=== PATIENT | male | born 1935 | race Hispanic/Latino ===

== ENCOUNTER 2020-08-04 09:58 | Emergency (ER) | payer OTHER ==
--- NOTE | 2020-08-04 10:56 | RAD REPORT ---
EXAM DESCRIPTION: CT - Head Brain Wo Cont - 08/04/2020 10:41 am CLINICAL HISTORY: Dizziness COMPARISON: 2014 TECHNIQUE: Computed axial tomography of the head was obtained. IV contrast was not requested. All CT scans are performed using dose optimization technique as appropriate and may include automated exposure control or mA/KV adjustment according to patient size. FINDINGS: An intracranial bleed is not seen . The ventricles are normal in caliber. Right frontal cerebral atrophy results in prominent CSF along the cerebral convexity. Fluid within the sinuses/ mastoids is not seen. IMPRESSION: No acute intracranial abnormality is seen. If patient's symptoms persist MRI of the bra in would be recommended.
[2020-08-04] MEDS ORDERED: ONDANSETRON 4 MG/2 ML VIAL ONE (11:07)
[2020-08-04] MEDS ORDERED: MECLIZINE HCL 12.5 MG TAB ONE (11:07)
[2020-08-04] MEDS ORDERED: NA CHLORIDE 0.9% 250 ML ONE (11:07)
[2020-08-04 11:13] LABS: Absolute Lymphocytes (CBC) 0.5 K/uL (0.7-4.9); Basophils % 0.1 % (0-1.3); Hematocrit 35.7 % (39.6-49.0); Lymphocytes % 8.5 % (15.3-44.8); MPV 9.7 fL (7.6-11.3); RBC Red Blood Cell Count 3.62 M/uL (4.33-5.43)
[2020-08-04 11:15] LABS: Protime INR 1.06
[2020-08-04 11:33] LABS: ALT/SGPT 48 U/L (12-78); AST/SGOT 27 U/L (15-37); Albumin 3.7 g/dL (3.4-5.0); Alkaline Phosphatase 85 U/L (45-117); BUN Blood Urea Nitrogen 13 mg/dL (7-18); Bicarbonate 28 mmol/L (21-32); Bilirubin Direct 0.3 mg/dL (0-0.2); Bilirubin Total 1.7 mg/dL (0.2-1.0); Glucose Level 118 mg/dL (74-106); NT PRO-BNP 418 pg/mL (<450); Protein, Total 7.5 g/dL (6.4-8.2); Sodium Level 138 mmol/L (136-145); Troponin (Emerg Dept Use Only) < 0.02 ng/mL (0.0-0.045)
--- NOTE | 2020-08-04 12:06 | RAD REPORT ---
[facility] 11[facility]32 am CLINICAL HISTORY: Cough and dizziness COMPARISON: 2014 FINDINGS: Left apical thickening without significant change and likely benign Mild right apical pleural thickening. The lungs appear clear of acute infiltrate. The heart is mildly enlarged IMPRESSION: No acute abnormalities displayed
[2020-08-04 12:44] LABS: Urine Blood TRACE (NEG); Urine Glucose NEGATIVE (NEG); Urine Protein NEGATIVE (NEG)
[2020-08-04 12:48] LABS: Urine Bacteria <20 /HPF (NONE SEEN); Urine RBC <5 /HPF (NONE SEEN)
--- NOTE | 2020-08-04 15:27 | RAD REPORT ---
EXAM DESCRIPTION: MRI - Brain Wo Cont - 08/04/2020 2:50 pm CLINICAL HISTORY: DIZZINESS COMPARISON: Iac W/Wo Cont dated 06/06/2019; Head Brain Wo Cont dated 08/04/2020 TECHNIQUE: Sagittal T1-weighted images were obtained along with axial PD, heavily T2-weighted and T2 -FLAIR images. Axial DWI and ADC mapping sequences were also obtained along with coronal heavily T2-w eighted images. FINDINGS: No intracranial hemorrhage, mass or acute infarction. There is no edema or new shift of mi dline structures. Patient has prominent CSF signal intensity collection up to 11 mm in thickness johnson g the right frontal and parietal lobes. No underlying sulcal effacement. 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 Mo derate generalized cerebral atrophy present with mild to moderate chronic ischemic change scattered t hroughout the cerebral white matter. Brainstem, thalamus and basal ganglia tissues are generally spar ed any measurable chronic ischemic change. Benedict-matter/white matter junction is preserved. Signal voi ds are seen as a normal finding in the major intracranial vessels. No globe or orbital content abnormality. No sella or supra sella abnormality. Mastoid air cells and paranasal sinuses are clear. IMPRESSION: Negative non-contrast MRI of the Brain for acute finding. 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
--- NOTE | 2020-08-04 16:04 | EDPHYS ---
Physician Documentation [facility] Name: Murray Grace Age: 85 yrs Sex: Male : 1935 Arrival Date: 08/04/2020 Time: 10:00 Bed 8 Private MD: Chio De Guzman ED Physician Tavo Arshad HPI: 08/04 10:35 This 85 yrs old Male presents to ER via Wheelchair with complaints of cp Dizziness, Vomiting, Runny Nose. 10:35 The patient presents with dizziness, generalized weakness. Onset: The symptoms/episode cp began/occurred yesterday. 10:35 Context: just prior to the episode the patient experienced no apparent symptoms. cp 10:35 Associated signs and symptoms: Pertinent positives: nausea, vomiting, Pertinent cp negatives: abdominal pain, chest pain, focal weakness, altered mental status. Patient's baseline: Neuro: alert and fully oriented, Motor: no deficits, Ambulation: walks without assistance, Speech: normal. Historical: - Allergies: 10:07 No Known Allergies; iw - Home Meds: 10:07 calcium daily [Active]; iw - PSHx: 10:07 Prostate surgery 01/29/2015; Cholecystectomy; iw - Immunization history:: Adult Immunizations up to date. - Social history:: Smoking status: Patient denies any tobacco usage or history of. ROS: 10:40 Constitutional: Negative for body aches, chills, fever, poor PO intake. cp 10:40 Eyes: Negative for injury, pain, redness, and discharge. cp 10:40 Cardiovascular: Negative for chest pain, edema, palpitations. cp 10:40 ENT: Negative for drainage from ear(s), ear pain, sore throat, difficulty swallowing, cp difficulty handling secretions. 10:40 Respiratory: Positive for cough, Negative for shortness of breath, wheezing. 10:40 Abdomen/GI: Positive for nausea and vomiting, Negative for abdominal pain, diarrhea, constipation, anorexia, black/tarry stool, rectal bleeding. 10:40 Back: Negative for pain at rest, pain with movement. 10:40 : Negative for urinary symptoms. 10:40 Neuro: Positive for dizziness, weakness, Negative for altered mental status, headache, loss of consciousness, syncope. 10:40 All other systems are negative. Exam: 10:45 Constitutional: The patient appears in no acute distress, alert, awake, cp non-diaphoretic, non-toxic, well developed, well nourished. 10:45 Head/Face: Normocephalic, atraumatic. cp 10:45 Eyes: Periorbital structures: appear normal, Pupils: equal, round, and reactive to light and accomodation, Extraocular movements: intact throughout, Conjunctiva: normal, no exudate, no injection, Sclera: no appreciated abnormality, Lids and lashes: appear normal, bilaterally. 10:45 ENT: External ear(s): are unremarkable, Ear canal(s): are normal, clear, TM's: dullness, bilaterally, Nose: is normal, Mouth: Lips: moist, Oral mucosa: moist, Posterior pharynx: Airway: no evidence of obstruction, patent. 10:45 Neck: ROM/movement: is normal, is supple, without pain, no range of motions limitations, no nuchal rigidity. 10:45 Chest/axilla: Inspection: normal, Palpation: is normal, no crepitus, no tenderness. 10:45 Cardiovascular: Rate: normal, Rhythm: regular, Edema: is not appreciated, JVD: is not appreciated. 10:45 Respiratory: the patient does not display signs of respiratory distress, Respirations: normal, no use of accessory muscles, no retractions, labored breathing, is not present, Breath sounds: are clear throughout, no decreased breath sounds, no stridor, no wheezing. 10:45 Abdomen/GI: Inspection: abdomen appears normal, Bowel sounds: active, all quadrants, Palpation: abdomen is soft and non-tender, in all quadrants, rebound tenderness, is not appreciated. 10:45 Back: pain, is absent, ROM is normal. 10:45 Skin: no rash present. 10:45 Neuro: Orientation: to person, place \T\ time. Mentation: is normal, Cerebellar function: Romberg testing is negative, normal finger to nose testing, Motor: moves all fours, strength is normal, Sensation: is normal. 11:00 ECG was reviewed by the Attending Physician. cp Vital Signs: 10:04 BP 149 / 74; Pulse 62; Resp 16; Temp 98.6; Pulse Ox 100% on R/A; Weight 65.77 kg; iw 11:30 BP 163 / 78; Pulse 72; Resp 21; Pulse Ox 99% ; bp 12:30 BP 165 / 73; Pulse 69; Resp 13; Pulse Ox 99% ; bp 13:00 BP 159 / 70; Pulse 64; Resp 12; Pulse Ox 100% ; bp 14:00 BP 163 / 76; Pulse 68; Resp 11; Pulse Ox 99% ; bp 15:00 BP 161 / 85; Pulse 59; Resp 15; Pulse Ox 99% ; bp 16:00 BP 167 / 60; Pulse 60; Resp 16; Temp 98.5; Pulse Ox 99% ; bp MDM: 10:28 Patient medically screened. cp 11:00 Differential diagnosis: cardiac arrhythmia, CVA, generalized weakness, GI bleed, cp hypovolemia, idiopathic dizziness, TIA, vertigo. 16:02 Data reviewed: vital signs, nurses notes, lab test result(s), EKG, radiologic studies, cp CT scan, MRI, and as a result, I will discharge patient. 16:02 Test interpretation: by ED physician or midlevel provider: ECG. Counseling: I had a cp detailed discussion with the patient and/or guardian regarding: the historical points, exam findings, and any diagnostic results supporting the discharge/admit diagnosis, lab results, radiology results, the need for outpatient follow up, a neurologist, to return to the emergency department if symptoms worsen or persist or if there are any questions or concerns that arise at home. Response to treatment: the patient's symptoms have markedly improved after treatment, and as a result, I will discharge patient. ED course: VSS. Dizziness and nausea improved. No vomiting observed. Will discharge to home for continued monitoring. Patient observed ambulating in ED w/o assistance. 08/04 10:31 Order name: COVID-19 cp 08/04 10:31 Order name: Urine Microscopic Only cp 08/04 10:31 Order name: Basic Metabolic Panel; Complete Time: 11:45 cp 08/04 11:45 Interpretation: Normal except: GLUC 118. cp 08/04 10:31 Order name: CBC with Diff; Complete Time: 11:45 cp 08/04 11:46 Interpretation: Normal except: RBC 3.62; HGB 12.1; HCT 35.7; TG% 87.5; LYM% 8.5; LYMA cp 0.5. 08/04 10:31 Order name: LFT's; Complete Time: 11:45 cp 08/04 11:46 Interpretation: Normal except: BILIT 1.7; BILID 0.3; GLOB 3.8; A/G 1.0. cp 12 10:31 Order name: Magnesium; Complete Time: 11:45 cp 08/04 10:31 Order name: NT PRO-BNP; Complete Time: 11:45 cp 08/04 10:31 Order name: PT-INR; Complete Time: 11:45 cp 08/04 10:31 Order name: Troponin (emerg Dept Use Only); Complete Time: 11:45 cp 08/04 10:31 Order name: Influenza Screen (a \T\ B); Complete Time: 11:45 cp 08/04 10:31 Order name: Lactate; Complete Time: 11:45 cp 08/04 10:31 Order name: Procalcitonin; Complete Time: 12:53 cp 08/04 10:32 Order name: Urine Microscopic Only; Complete Time: 12:53 EDMS 08/04 10:31 Order name: Urine Dipstick-Ancillary (obtain specimen); Complete Time: 12:10 cp 08/04 10:31 Order name: CT Head Brain wo Cont; Complete Time: 11:45 cp 08/04 10:31 Order name: XRAY Chest (1 view); Complete Time: 12:53 cp 08/04 12:54 Interpretation: Report review. 08/04 10:31 Order name: EKG; Complete Time: 10:32 cp 08/04 10:31 Order name: Cardiac monitoring; Complete Time: 10:58 cp 08/04 10:31 Order name: EKG - Nurse/Tech; Complete Time: 10:58 cp 08/04 10:31 Order name: IV Saline Lock; Complete Time: 10:58 cp 08/04 10:31 Order name: Labs collected and sent; Complete Time: 10:58 cp 08/04 12:10 Order name: SARS-COV-2 RT PCR; Complete Time: 12:53 EDMS 08/04 12:40 Order name: Urine Dipstick--Ancillary (enter results); Complete Time: 12:53 bd 08/04 12:53 Interpretation: Normal except: UKET 2+; UBLD TRACE. cp 08/04 13:20 Order name: MRI - Brain Wo Cont; Complete Time: 15:35 bd 08/04 10:31 Order name: O2 Per Protocol; Complete Time: 10:42 cp 08/04 10:31 Order name: O2 Sat Monitoring; Complete Time: 10:42 cp 08/04 15:36 Order name: PO challenge; Complete Time: 15:54 cp 08/04 15:36 Order name: Misc. Order: ambulate with walker; Complete Time: 15:54 cp EC:00 Rate is 66 beats/min. Rhythm is regular. MS interval is normal. QRS interval is cp prolonged at 156 msec. QT interval is normal. T waves are Inverted in lead aVR. Interpreted by me. Reviewed by me. Administered Medications: 10:50 Drug: NS 0.9% 250 ml Route: IV; Rate: bolus; Site: right antecubital; bp 16:12 Follow up: IV Status: Completed infusion; IV Intake: 250ml bp 10:50 Drug: Zofran (Ondansetron) 4 mg Route: IVP; Site: right antecubital; bp 12:10 Follow up: Response: No adverse reaction bp 10:50 Drug: Meclizine 25 mg Route: PO; bp 12:09 Follow up: Response: No adverse reaction bp 13:10 Drug: NS 0.9% 250 ml Route: IV; Rate: 75 ml/hr; Site: right antecubital; bp 16:12 Follow up: IV Status: Completed infusion; IV Intake: 250ml bp Disposition: 08/05 06:30 Co-signature as Attending Physician, Tavo Arshad MD I agree with the assessment and kdr plan of care. Disposition: 08/04/20 16:03 Discharged to Home. Impression: Dizziness and giddiness, Nausea and vomiting. - Condition is Stable. - Discharge Instructions: Dizziness, Nausea and Vomiting, Adult. - Prescriptions for Meclizine 25 mg Oral Tablet - take 1 tablet by ORAL route every 8 hours As needed; 30 tablet. Zofran 4 mg Oral Tablet - take 1 tablet by ORAL route every 12 hours As needed; 20 tablet. - Medication Reconciliation Form, Thank You Letter, Antibiotic Education, Prescription Opioid Use form. - Follow up: Benjamin Gomez MD; When: 1 - 2 days; Reason: Recheck today's complaints. - Problem is new. - Symptoms have improved. Signatures: Dispatcher [employer] EDKS Tavo Arshad MD MD kdr Williams, Irene, RN RN iw Adam Jessica PA PA cp Dipak Carlson, RN RN bp Corrections: (The following items were deleted from the chart) 08/04 11:25 10:32 CORONAVIRUS ordered. EDMS EDMS 16:09 16:03 08/04/2020 16:03 Discharged to Home. Impression: Dizziness and giddiness. cp Condition is Stable. Forms are Medication Reconciliation Form, Thank You Letter, Antibiotic Education, Prescription Opioid Use. Follow up: Benjamin Gomez; When: 1 - 2 days; Reason: Recheck today's complaints. Problem is new. Symptoms have improved. cp 16: 16:09 08/04/2020 16:03 Discharged to Home. Impression: Dizziness and giddiness; Nausea bp and vomiting. Condition is Stable. Forms are Medication Reconciliation Form, Thank You Letter, Antibiotic Education, Prescription Opioid Use. Follow up: Benjamin Gomez; When: 1 - 2 days; Reason: Recheck today's complaints. Problem is new. Symptoms have improved. cp
--- NOTE | 2020-08-04 16:04 | ER ---
Nurse's Notes [facility] Name: Murray Grace Age: 85 yrs Sex: Male : 1935 Arrival Date: 08/04/2020 Time: 10:00 Bed 8 Private MD: Chio De Guzman Diagnosis: Dizziness and giddiness;Nausea and vomiting Presentation: 08/04 10:04 Chief complaint: Spouse and/or significant other states: Headache, dizziness, vomiting iw since yesterday, no diarrhea, no fever, mild cough, runny nose. Coronavirus screen: cough unrelated to allergies, fatigue, headache, nausea, vomiting. Client presents with at least one sign or symptom that may indicate coronavirus-19. Standard/surgical mask placed on the client. Provider contacted for isolation considerations. Ebola Screen: Patient negative for fever greater than or equal to 101.5 degrees Fahrenheit, and additional compatible Ebola Virus Disease symptoms Patient denies exposure to infectious person. Patient denies travel to an Ebola-affected area in the 21 days before illness onset. No symptoms or risks identified at this time. Initial Sepsis Screen: Does the patient meet any 2 criteria? No. Patient's initial sepsis screen is negative. Does the patient have a suspected source of infection? No. Patient's initial sepsis screen is negative. Risk Assessment: Do you want to hurt yourself or someone else? Patient reports no desire to harm self or others. Onset of symptoms was August 03, 2020. 10:04 Method Of Arrival: Wheelchair iw 10:04 Acuity: BRADY 3 iw Triage Assessment: 10:10 General: Appears in no apparent distress. comfortable, Behavior is cooperative, bp appropriate for age, anxious. Pain: Denies pain. EENT: Reports nasal congestion. Neuro: Reports dizziness. Cardiovascular: Rhythm is sinus rhythm. Respiratory: No deficits noted. GI: Reports nausea, vomiting. : No signs and/or symptoms were reported regarding the genitourinary system. Derm: No deficits noted. Musculoskeletal: No deficits noted. Historical: - Allergies: 10:07 No Known Allergies; iw - Home Meds: 10:07 calcium daily [Active]; iw - PSHx: 10:07 Prostate surgery 01/29/2015; Cholecystectomy; iw - Immunization history:: Adult Immunizations up to date. - Social history:: Smoking status: Patient denies any tobacco usage or history of. Screenin:10 Abuse screen: Denies threats or abuse. Denies injuries from another. Nutritional bp screening: No deficits noted. Tuberculosis screening: No symptoms or risk factors identified. Fall Risk None identified. Assessment: 10:10 General: SEE TRIAGE NOTE. bp 11:36 Reassessment: Patient appears in no apparent distress at this time. Patient and/or bp family updated on plan of care and expected duration. Pain level reassessed. Patient is alert, oriented x 3, equal unlabored respirations, skin warm/dry/pink. ALL CURRENT ORDERS COMPLETE, NO VOMITING POST ARRIVAL TO ED. 12:30 Reassessment: Patient appears in no apparent distress at this time. Patient and/or bp family updated on plan of care and expected duration. Pain level reassessed. Patient is alert, oriented x 3, equal unlabored respirations, skin warm/dry/pink. 14:00 Reassessment: Patient appears in no apparent distress at this time. No changes from bp previously documented assessment. Patient and/or family updated on plan of care and expected duration. Pain level reassessed. PT TO MRI. GI: Abdomen is non-distended. 15:01 Reassessment: Patient appears in no apparent distress at this time. No changes from bp previously documented assessment. Patient and/or family updated on plan of care and expected duration. Pain level reassessed. Patient is alert, oriented x 3, equal unlabored respirations, skin warm/dry/pink. PT RETURNED FROM MRI. 15:55 Reassessment: PO CHALLENGE AND AMBULATION CHALLENGE SUCCESSFUL. PROVIDER NOTIFIED. bp Neuro: Gait is steady. 16:09 Reassessment: PT D/C HOME AMBULATORY WITH FAMILY, DX WITH DIZZINESS. bp Vital Signs: 10:04 BP 149 / 74; Pulse 62; Resp 16; Temp 98.6; Pulse Ox 100% on R/A; Weight 65.77 kg; iw 11:30 BP 163 / 78; Pulse 72; Resp 21; Pulse Ox 99% ; bp 12:30 BP 165 / 73; Pulse 69; Resp 13; Pulse Ox 99% ; bp 13:00 BP 159 / 70; Pulse 64; Resp 12; Pulse Ox 100% ; bp 14:00 BP 163 / 76; Pulse 68; Resp 11; Pulse Ox 99% ; bp 15:00 BP 161 / 85; Pulse 59; Resp 15; Pulse Ox 99% ; bp 16:00 BP 167 / 60; Pulse 60; Resp 16; Temp 98.5; Pulse Ox 99% ; bp ED Course: 10:00 Patient arrived in ED. as 10:00 Chio De Guzman is Private Physician. as 10:06 Triage completed. iw 10:07 Arm band placed on. iw 10:08 Dipak Carlson, RN is Primary Nurse. bp 10:17 Adam Jessica PA is PHCP. cp 10:17 Tavo Arshad MD is Attending Physician. cp 10:41 CT Head Brain wo Cont In Process Unspecified. EDMS 10:57 Initial lab(s) drawn, by me, sent to lab. COVID swab sent to lab. Flu and/or RSV swab mh5 sent to lab. Inserted saline lock: 20 gauge in right antecubital area, using aseptic technique. Blood collected. 10:58 Patient has correct armband on for positive identification. Placed in gown. Bed in low mh5 position. Call light in reach. Side rails up X2. Adult w/ patient. Warm blanket given. monitor worker on. Pulse ox on. NIBP on. 10:58 EKG done, by ED staff, reviewed by Tavo Arshad MD. mh5 10:59 Procalcitonin Sent. mh5 10:59 Influenza Screen (a \T\ B) Sent. mh5 10:59 Lactate Sent. mh5 10:59 Basic Metabolic Panel Sent. mh5 10:59 CBC with Diff Sent. mh5 11:01 LFT's Sent. mh5 11:01 Magnesium Sent. mh5 11:01 NT PRO-BNP Sent. mh5 11:01 PT-INR Sent. mh5 11:01 Troponin (emerg Dept Use Only) Sent. mh5 11:01 COVID-19 Sent. mh5 11:32 XRAY Chest (1 view) In Process Unspecified. EDMS 12:11 Urine Microscopic Only Sent. dh3 13:00 Urine Microscopic Only Sent. sv 14:50 MRI - Brain Wo Cont In Process Unspecified. EDMS 16:03 Benjamin Gomez MD is Referral Physician. cp 16:10 No provider procedures requiring assistance completed. IV discontinued, intact, bp bleeding controlled, No redness/swelling at site. Pressure dressing applied. Administered Medications: 10:50 Drug: NS 0.9% 250 ml Route: IV; Rate: bolus; Site: right antecubital; bp 16:12 Follow up: IV Status: Completed infusion; IV Intake: 250ml bp 10:50 Drug: Zofran (Ondansetron) 4 mg Route: IVP; Site: right antecubital; bp 12:10 Follow up: Response: No adverse reaction bp 10:50 Drug: Meclizine 25 mg Route: PO; bp 12:09 Follow up: Response: No adverse reaction bp 13:10 Drug: NS 0.9% 250 ml Route: IV; Rate: 75 ml/hr; Site: right antecubital; bp 16:12 Follow up: IV Status: Completed infusion; IV Intake: 250ml bp Intake: 16:12 IV: 250ml; Total: 250ml. bp 16:12 IV: 250ml; Total: 500ml. bp Outcome: 16:03 Discharge ordered by MD. cp 16:10 Discharged to home ambulatory, with family. bp 16:10 Condition: stable 16:10 Discharge instructions given to patient, family, Instructed on discharge instructions, follow up and referral plans. Demonstrated understanding of instructions, follow-up care. 16:22 Patient left the ED. bp Signatures: Dispatcher [employer] EDIA Aurea Dumont RN RN sv Martinez, Amelia as Williams, Irene, RN RN iw Page, Corey, PA PA cp Martinez, Maria [facility] Larisa [facility] Dipak Carlson RN RN bp Corrections: (The following items were deleted from the chart) 11:25 10:59 CORONAVIRUS drawn and sent. [address] 14:14 14:00 Reassessment: Patient appears in no apparent distress at this time. No changes bp from previously documented assessment. Patient and/or family updated on plan of care and expected duration. Pain level reassessed. MRI PENDING bp
[2020-08-05 09:12] VITALS: O2SAT 99
[2020-08-05 09:19] VITALS: BP 167/60; TEMP 98.5
== END 2020-08-04 16:22 | disposition home or self-care (01) ==
LOC: ER 09:58
DX: R11.2 Nausea with vomiting, unspecified (principal); Z20.828 Contact with and (suspected) exposure to other viral communicable diseases
CPT/HCPCS: 96365; 93005; 85025; 80048; 36415; 83735; 85610; 80076; 83605; 84484; 84145; 83880; 87804 ×2; 70450; 71045; 70551; 96375; 99284; 96366; U0003; J7050; J2405; 81003; 81015

== ENCOUNTER 2022-01-19 13:56 | Emergency (ER) | payer OTHER ==
--- OUTSIDE RECORDS SUMMARY | 2022-01-19 13:59 | XMS REPORT | Continuity of Care Document ---
:1935 Author Organization [facility] t Address [address] [place] [address] Care Team Providers Name Role Phone Lucero Díaz Attending Clinician Unavailable MONICA Attending Clinician Unavailable Monica PRIEST Attending Clinician Pc, Echo Room 1 - Attending Clinician Unavailable Doctor Unassigned, Name Attending Clinician Unavailable Payers Payer Name Policy Type Policy Number Effective Date Expiration Date S chris MEDICARE PART A [id number] 1994 \T\ B 00:00:00 FORMERLY [facility] [id number] 2017 [facility] 00:00:00 [facility] [employer] [id number] 2018spring 00:00:00 MEDICAID OF [place] [id number] 2016 00:00:00 Problems This patient has no known problems. Allergies, Adverse Reactions, Alerts Allergy Allergy Status Severity Reaction(s) Onset Inactive Treating Comm ents Source Name Type Date Date Clinician NO KNOWN Drug Active Univers ALLERGIE Class ity of [facility] Social History Social Habit Start Date Stop Date Quantity Comments Source Exposure to Not sure [facility] SARS-CoV-2 (event) Medica l Branch Sex Assigned At [facility] Branch Alcohol intake 2020-01-22 2020-01-22 [facility] Medical Branch Smoking Status Start Date Stop Date Source Never smoker [facility] Medications Ordered Filled Start Stop Current Ordering Indication Dosage Frequency Signature Comments Components Source Medication Medication Date Date Medication? Clinician (SIG) Name Name Midodrine Midodrine 2019-0 Yes Na Arjun 1 tablet Common HCl HCl 7-02 Spirit 00:00: - [facility] 00 [facility] cycloSPORIN 2020-0 Yes 1[drp] Place 1 U nivers E 6-10 Drop in ity of (RESTASIS) 18:17: left eye Sumit as 0.05 % 39 every 12 Medical drops (twelve) Branch hours. cycloSPORIN 2020-0 Yes 1[drp] Place 1 U nivers E 6-10 Drop in ity of (RESTASIS) 18:17: left eye Sumit as 0.05 % 39 every 12 Medical drops (twelve) Branch hours. cycloSPORIN 2020-0 Yes 1[drp] Place 1 U nivers E 6-10 Drop in ity of (RESTASIS) 18:17: left eye Sumit as 0.05 % 39 every 12 Medical drops (twelve) Branch hours. cycloSPORIN 2020-0 Yes 1[drp] Place 1 U nivers E 6-10 Drop in ity of (RESTASIS) 18:17: left eye Sumit as 0.05 % 39 every 12 Medical drops (twelve) Branch hours. midodrine 5 2020-0 Yes [id number] 5mg Take 1 Univers mg tablet 6-10 tablet by ity o f 00:00: mouth [place] 00 daily. 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 cycloSPORIN 2019-0 Yes 1[drp] Place 1 U nivers E 9-10 Drop in ity of (RESTASIS) 18:25: left eye Sumit as 0.05 % 18 every 12 Medical drops (twelve) Branch hours. cycloSPORIN 2019-0 Yes 1[drp] Place 1 U nivers E 9-10 Drop in ity of (RESTASIS) 18:25: left eye Sumit as 0.05 % 18 every 12 Medical drops (twelve) Branch hours. midodrine 5 Yes [id number] 5mg Take 1 Univers mg tablet 9-10 tablet by ity o f 00:00: mouth [place] 00 daily. 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 up Ventolin Ventolin 2017-08 Yes Na Díaz 2 puffs as Common HFA HFA 09-03 needed Spirit 00:00: - [facility] 00 [facility] Incruse Incruse 2017-08 Yes Na Díaz 1 puff Co mmon Ellipta Ellipta 09-03 Spirit 00:00: - [facility] 00 [facility] Ketoconazol Ketoconazol Yes Na Díaz 1 Common e e applicatio Spirit n to - [facility]I affected [facility] Linzess Linzess Yes Na Díaz 1 capsule C ommon [facility] Mirtazapine Mirtazapine Yes Na Díaz 1 tablet Common at bedtime [facility] Caltrate Caltrate Yes Na Díaz 1 tablet Common 600+D 600+D with a Spirit meal [facility] Zyrtec Zyrtec Yes Na Díaz 1 tablet Comm on Allergy Allergy [facility] Vitamin B12 Vitamin B12 Yes Na Díaz 1 tablet Common [facility] Prolia Prolia Yes Na Díaz as Common directed [facility] Benzonatate Benzonatate Yes Na Díaz 1 capsule Common as needed [facility] Ferrous Ferrous Yes Na Díaz 1 tablet Co mmon Sulfate Sulfate [facility] Aspirin Aspirin Yes Na Díaz 1 tablet Co mmon Adult Low Adult Low Spiri t Dose [facility] Zantac Zantac Yes Na Díaz 1 tablet Comm on at bedtime [facility] Flonase Flonase Yes Na Díaz 1 spray in Common each [facility] nostril [facility] Singulair Singulair Yes Na Díaz 1 tablet Common in the [facility] evening [facility] Immunizations Ordered Immunization Filled Immunization Date Status Commen ts Source Name Name Guillermo FluJAMISON 2018-07-04 Completed Common [facility] 00:00:00 [facility] Vital Signs Vital Name Observation Time Observation Value Comments Source Systolic blood 2020-01-30 17:58:00 157 mm[Hg] Univer sity [facility] Diastolic blood 2020-01-30 17:58:00 69 mm[Hg] [facility] Heart rate 2020-01-30 17:58:00 65 /min [facility] Body height 2020-01-30 17:58:00 167.6 cm [facility] Body weight 2020-01-30 17:58:00 70.308 kg [facility] BMI 2020-01-30 17:58:00 25.02 kg/m2 [facility] Systolic blood 2020-01-22 18:20:00 144 mm[Hg] our machine Univer sity [facility] Branch Diastolic blood 2020-01-22 18:20:00 61 mm[Hg] our machine Unive rsity of pressure [facility] Branch Heart rate 2020-01-22 18:15:00 68 /min Universi ty of [facility] Branch Respiratory rate 2020-01-22 18:15:00 19 /min Univ ersity of [facility] Body weight 2020-01-22 18:15:00 70.489 kg Universi ty of [facility] Branch BMI 2020-01-22 18:15:00 25.08 kg/m2 Universi ty of [facility] Branch Oxygen saturation 2020-01-22 18:15:00 96 /min Uni versity of in Arterial blood [place] [facility] by Pulse oximetry Branch Systolic blood 2019-04-23 18:23:00 132 mm[Hg] Univer sity of pressure [facility] Diastolic blood 2019-04-23 18:23:00 57 mm[Hg] Unive rsity of [facility] Heart rate 2019-04-23 18:23:00 65 /min Universi ty of [facility] Respiratory rate 2019-04-23 18:23:00 19 /min Univ ersity of [facility] Body height 2019-04-23 18:23:00 167.6 cm Universi ty of [facility] Body weight 2019-04-23 18:23:00 72.439 kg Universi ty of [facility] BMI 2019-04-23 18:23:00 25.78 kg/m2 Universi ty of [facility] Oxygen saturation 2019-04-23 18:23:00 97 /min Uni versity of in Arterial blood [place] [facility] by Pulse oximetry Branch Procedures Procedure Date / Time Performed Performing Clinician [facility] e ASSIGNMENT OF BENEFITS 2020-01-22 17:42:39 Doctor Unassigned, No [facility] Branch Encounters Start End Encounter Admission Attending Care Care Encounter Source Date/Time Date/Time Type Type Clinicians Facility Department ID 2021-09-08 Outpatient Lena Díaz [facility] [id number] Common 14:10:03 [id number] [facility] 2021-09-08 Out[facility] [id number] Common 14:09:36 [id number] [facility] 2021-09-08 Outpatient Díaz, Na STLMLC STLMLC [id number] Common 13:48:51 [id number] [facility] 2021-09-08 Outpatient Díaz, Na STLMLC STLMLC [id number] Common 13:34:14 [id number] [facility] 2021-09-08 Outpatient Díaz, Na STLMLC STLMLC [id number] 2 Common 12:25:33 [id number] [facility] 2021-09-08 Outpatient Díaz, Na STLMLC STLMLC [id number] Common 12:19:42 [id number] [facility] 2021-09-08 Outpatient Díaz, Na STLMLC STLMLC [id number] 2 Common 11:52:37 [id number] [facility] 2021-09-08 Outpatient Díaz, Na STLMLC STLMLC [id number] Common 11:49:12 [id number] [facility] 2021-09-08 Outpatient Díaz, Na STLMLC STLMLC [id number] 2 Common 11:28:23 [id number] [facility] 2021-09-08 Outpatient Díaz, Na STLMLC STLMLC [id number] 2 Common 11:24:48 [id number] [facility] 2021-09-06 2021-09-06 ambulatory STLMLC STLMLC [id number] Common 00:00:00 00:00:00 [facility] 2021-06-17 2021-06-17 ambulatory STLMLC STLMLC [id number] Common 00:00:00 00:00:00 [facility] 2021-03-25 2021-03-25 Outpatient STLMLC STLMLC [id number] Common 00:00:00 00:00:00 [facility] 2021-03-22 2021-03-22 Outpatient STLMLC STLMLC [id number] Common 00:00:00 00:00:00 [facility] 2021-03-19 2021-03-19 Outpatient STLMLC STLMLC [id number] Common 00:00:00 00:00:00 [facility] 2021-01-25 2021-01-25 Outpatient R MONICA, [facility] [id number] Univers 13:00:00 13:00:00 WILFRIDO [id number] amritjos alvares [facility] 2021-01-25 2021-01-25 Outpatient R MONICA, [facility] [id number] Univers 13:00:00 13:00:00 WILFRIDO jaime o giorgio [facility] 2020-12-08 2020-12-08 Outpatient STLMLC STLMLC [id number] Common 00:00:00 00:00:00 [facility] 2020-09-15 2020-09-15 Outpatient STLMLC STLMLC [id number] Common 00:00:00 00:00:00 [facility] 2020-09-14 2020-09-14 Outpatient STLMLC STLMLC [id number] Common 00:00:00 00:00:00 [facility] 2020-09-08 2020-09-08 Outpatient STLMLC STLMLC [id number] Common 00:00:00 00:00:00 [facility] 2020-05-21 2020-05-21 Outpatient STLMLC STLMLC [id number] Common 00:00:00 00:00:00 [facility] 2020-02-20 2020-02-20 [facility] [id number] Common 10:00:00 10:00:[address] [facility] 2020-02-11 2020-02-11 Out[facility] [id number] Common 08:27:00 08:27:[address] [facility] 2020-02-11 2020-02-11 [facility] [id number] Univers 00:00:00 00:00:00 Wilfrido Mckinney [id number] [place] [id number] Manjit Ruiz [id number] [address] 2020-02-10 2020-02-10 Out[facility] [id number] Common 15:00:00 15:00:[address] [facility] 2020-01-30 2020-01-30 Laboratory Pc, Adc Echo Room 1 - [facility] [id number] Univers 12:27:20 13:34:45 Only Monica, Wilfrido Mckinney [id number] [id number] [id number] Oh dical nal 9 [facility] 2020-01-30 2020-01-30 Outpatient R [facility] [id number] Univers 13:00:00 13:00:00 [id number] ity of [facility] 2020-01-30 2020-01-30 Outpatient R MONICA, [facility] [id number] Univers 13:00:00 13:00:00 WILFRIDO jaime o giorgio [facility] 2020-01-22 2020-01-22 Office [facility] [id number] Univers 12:44:21 13:46:52 Visit Wilfrido Mckinney [id number] [id number] [phone] Oh dical nal [address] [place] [address] 2020-01-22 2020-01-22 Outpatient R MONCIA, [facility] [id number] Univers 13:00:00 13:00:00 WILFRIDO jaime o f [facility] 2020-01-22 2020-01-22 Orders Doctor BORDEN [id number] Univers 00:00:00 00:00:00 Only Unassigned, HARI [id number] ity of [place] [facility] [id number] Sumit as [phone] [address] 2020-01-10 2020-01-10 [facility] [id number] Common 15:13:00 15:13:[address] [facility] 2020-01-10 2020-01-10 Outpatient [facility] [id number] Common 12:17:00 12:17:[address] [facility] 2019-07-31 2019-07-31 Outpatient [facility] [id number] Common 09:00:00 09:00:[address] [facility] 2019-07-09 2019-07-09 Outpatient [facility] [id number] Common 13:40:00 13:40:[address] [facility] 2019-04-23 2019-04-23 Office [facility], [facility] [id number] Univers 13:12:25 14:02:05 Visit Wilfrido Mckinney [id number] [place] [id number] Manjit Ruiz [phone] [place] [id number] [facility] 2019-04-11 2019-04-11 Outpatient [facility] [id number] Common 15:00:00 15:00:[address] [facility] 2019-02-13 2019-02-13 Outpatient [facility] [id number] Common 10:00:00 10:00:00 t Specialty/U Sp troy Specialty rology - [facility] 2019-01-09 2019-01-09 Outpatient [facility] [id number] Common 11:20:00 11:20:[address] [facility] 2019-01-09 2019-01-09 Outpatient [facility] [id number] Common 09:20:00 09:20:[address] [facility] 2018-10-15 2018-10-15 Outpatient [facility] [id number] Common 10:50:00 10:50:[address] [facility] 2018-10-09 2018-10-09 Outpatient [facility] [id number] Common 14:22:00 14:22:[address] [facility] 2018-10-09 2018-10-09 Outpatient [facility] [id number] Common 11:45:00 11:45:[address] [facility] 2018-08-23 2018-08-23 Outpatient [facility] [id number] Common 14:06:00 14:06:[address] [facility] 2018-08-23 2018-08-23 Outpatient [facility] [id number] Common 08:03:00 08:03:[address] [facility] 2018-08-16 2018-08-16 Outpatient [facility] [id number] Common 09:45:00 09:45:00 t Specialty/U Sp troy Specialty rology [facility] /Urology Clinic [facility] 2018-08-15 2018-08-15 Outpatient [facility] [id number] Common 10:12:00 10:12:[address] [facility] 2018-08-10 2018-08-10 Outpatient [facility] [id number] Common 11:00:00 11:00:[address] [facility] 2018-07-04 2018-07-04 Outpatient [facility] [id number] Common 11:30:00 11:30:[address] [facility] 2018-03-29 2018-03-29 Outpatient [facility] [id number] Common 15:00:00 15:00:[address] [facility] Results This patient has no known results.
--- NOTE | 2022-01-19 15:32 | RAD REPORT ---
EXAM DESCRIPTION: RAD - Elbow Left 3 View - 01/19/2022 3:12 pm CLINICAL HISTORY: Left elbow pain status post trauma FINDINGS: No fracture or dislocation is seen. Bones are osteoporotic
--- NOTE | 2022-01-19 16:41 | ER ---
Nurse's Notes [facility] Name: Murray Grace Age: 86 yrs Sex: Male : 1935 Arrival Date: 01/19/2022 Time: 13:58 Bed 18 Private MD: Diagnosis: Contusion of left elbow Presentation: 01/19 14:37 Chief complaint: Patient states: Fell onto L elbow today. Coronavirus screen: Client ll1 denies travel out of the [place] in the last 14 days. At this time, the client does not indicate any symptoms associated with coronavirus-19. Ebola Screen: Patient denies travel to an Ebola-affected area in the 21 days before illness onset. Initial Sepsis Screen: Does the patient meet any 2 criteria? No. Patient's initial sepsis screen is negative. Does the patient have a suspected source of infection? Yes: Skin breakdown/wound. Risk Assessment: Do you want to hurt yourself or someone else? Patient reports no desire to harm self or others. Onset of symptoms was January 19, 2022. 14:37 Method Of Arrival: Ambulatory ll1 14:37 Acuity: BRADY 4 ll1 Triage Assessment: 14:40 General: Appears in no apparent distress. Behavior is calm, cooperative, appropriate ll1 for age. Pain: Denies pain. Derm: Reports abrasion L elbow. Historical: - Allergies: 14:40 No Known Drug Allergies; ll1 - PMHx: 14:40 None; ll1 - PSHx: 14:40 None; ll1 - Immunization history:: Last tetanus immunization: not immunized. - Social history:: Smoking status: Patient denies any tobacco usage or history of. Screenin:10 Abuse screen: Denies threats or abuse. Nutritional screening: No deficits noted. jh6 Tuberculosis screening: No symptoms or risk factors identified. Assessment: 16:00 General: Appears in no apparent distress. comfortable, Behavior is calm, cooperative, 6 Smells of. 16:00 Pain: Complains of pain in left elbow Pain currently is 4 out of 10 on a pain scale. 6 Quality of pain is described as aching, Pain began suddenly, Is continuous. Musculoskeletal: Capillary refill < 3 seconds, Range of motion: intact in all extremities, Swelling absent abrasion to l elbow noted wound cleaned with saline and soap. then non adherent dressing and irma wrap applied. insurance account representative used for d/c instructions. Vital Signs: 14:37 BP 120 / 64; Pulse 68; Resp 16; Temp 99.3; Pulse Ox 99% ; Pain 0/10; ll1 17:09 BP 126 / 72; Pulse 70; Resp 17; Pulse Ox 100% ; Pain 0/10; jh6 Cristian Coma Score: 16:00 Eye Response: spontaneous(4). Verbal Response: oriented(5). Motor Response: obeys 6 commands(6). Total: 15. ED Course: 13:58 Patient arrived in ED. rg4 14:15 Adam Jessica PA is PHCP. cp 14:15 Michael Castellano DO is Attending Physician. cp 14:39 Triage completed. ll1 14:40 Arm band placed on. ll1 15:14 XRAY Elbow LEFT 3 view In Process Unspecified. EDMS 16:00 Patient did not have IV access during this emergency room visit. [facility] 16:18 Azeb Sampson, RN is Primary Nurse. [facility] Administered Medications: 16:41 Drug: Tylenol 650 mg Route: PO; 6 17:12 Follow up: Response: No adverse reaction [facility] Outcome: 16:40 Discharge ordered by MD. cp 17:11 Discharged to home ambulatory. jh6 17:11 Condition: improved 17:11 Discharge instructions given to patient, Instructed on discharge instructions, Demonstrated understanding of instructions, wound care. 17:13 Patient left the ED. 6 Signatures: Dispatcher [employer] EDTN Adam Jessica PA PA cp Garcia, Rubi rg4 Tabby Gaytan RN RN [facility] Azeb Sampson, MAYO RN [facility]
--- NOTE | 2022-01-19 16:41 | EDPHYS ---
Physician Documentation [facility] Name: Murray Grace Age: 86 yrs Sex: Male : 1935 Arrival Date: 01/19/2022 Time: 13:58 Bed 18 Private MD: ED Physician Michael Castellano HPI: 01/19 15:00 This 86 yrs old Male presents to ER via Ambulatory with complaints of Fall cp Injury, Laceration To Arm. 15:00 Details of fall: The patient fell from an upright position, while walking, reports cp losing balance. Onset: The symptoms/episode began/occurred today. 15:00 Associated injuries: The patient sustained left elbow, painful injury. cp 15:00 Patient denies hitting head, denies LOC, denies syncope. cp Historical: - Allergies: 14:40 No Known Drug Allergies; ll1 - PMHx: 14:40 None; ll1 - PSHx: 14:40 None; ll1 - Immunization history:: Last tetanus immunization: not immunized. - Social history:: Smoking status: Patient denies any tobacco usage or history of. ROS: 15:05 MS/extremity: Positive for pain, of the left elbow, Negative for decreased range of cp motion, deformity. 15:05 Constitutional: Negative for fever. cp 15:05 Neck: Negative for pain with movement, pain at rest. 15:05 Back: Negative for pain at rest, pain with movement. 15:05 Neuro: Negative for altered mental status, headache, loss of consciousness, syncope, weakness. 15:05 All other systems are negative. Exam: 15:10 Head/Face: Normocephalic, atraumatic. cp 15:10 Constitutional: The patient appears in no acute distress, alert, awake, well developed, well nourished. 15:10 Neck: ROM/movement: is normal, is supple, without pain, no range of motions limitations, no nuchal rigidity. 15:10 Chest/axilla: Inspection: normal, Palpation: is normal, no crepitus, no tenderness. 15:10 Cardiovascular: Rate: normal, Pulses: Pulses are 2+ in left radial artery. cp 15:10 Respiratory: the patient does not display signs of respiratory distress, Respirations: normal, no use of accessory muscles, no retractions, labored breathing, is not present. 15:10 Back: pain, is absent, ROM is normal. 15:10 Musculoskeletal/extremity: Extremities: grossly normal except: noted in the left elbow: tenderness, mild swelling noted with tender nodule to left posterior elbow. Vital Signs: 14:37 BP 120 / 64; Pulse 68; Resp 16; Temp 99.3; Pulse Ox 99% ; Pain 0/10; ll1 17:09 BP 126 / 72; Pulse 70; Resp 17; Pulse Ox 100% ; Pain 0/10; jh6 Sumpter Coma Score: 16:00 Eye Response: spontaneous(4). Verbal Response: oriented(5). Motor Response: obeys jh6 commands(6). Total: 15. MDM: 16:13 Patient medically screened. cp 16:40 Data reviewed: vital signs, nurses notes, radiologic studies, plain films. cp 16:40 Differential diagnosis: abrasion, contusion, fracture, laceration. Test interpretation: cp by ED physician or midlevel provider: plain radiologic studies. Counseling: I had a detailed discussion with the patient and/or guardian regarding: the historical points, exam findings, and any diagnostic results supporting the discharge/admit diagnosis, radiology results. 01/19 14:39 Order name: XRAY Elbow LEFT 3 view cp 01/19 16:39 Order name: Wound dressing: antibiotic ointment and nonstick dressing, irma wrap; cp Complete Time: 16:41 Administered Medications: 16:41 Drug: Tylenol 650 mg Route: PO; jh6 17:12 Follow up: Response: No adverse reaction jh6 Disposition Summary: 01/19/22 16:40 Discharge Ordered Location: Home cp Problem: new cp Symptoms: have improved cp Condition: Stable cp Diagnosis - Contusion of left elbow cp Followup: cp - With: Private Physician - When: 1 - 2 days - Reason: Wound Recheck Discharge Instructions: - Discharge Summary Sheet cp - Elbow Contusion cp Forms: - Medication Reconciliation Form cp - Thank You Letter cp - Antibiotic Education cp - Prescription Opioid Use cp Signatures: Dispatcher [employer] [facility] Adam Jessica PA PA cp Lewis, Lynsay, RN RN ll1 Azeb Sampson RN RN jh6 Corrections: (The following items were deleted from the chart) 14:43 14:40 Elbow Right 3 View+[email or web address] ordered. ED[facility] EDMS 01/20 16:03 15:10 Constitutional: The patient appears in no acute distress, alert, awake, well cp developed, well nourished, cp 16: 15:10 Head/Face: Normocephalic, atraumatic. cp cp 16: 15:10 Neck: ROM/movement: is normal, is supple, without pain, no range of motions cp limitations, no nuchal rigidity, cp 16:03 15:10 Chest/axilla: Inspection: normal, Palpation: is normal, no crepitus, no cp tenderness, cp
[2022-01-19] MEDS ORDERED: ACETAMINOPHEN 325 MG TABLET ONE (16:46)
[2022-01-19 17:19] VITALS: TEMP 99.3
[2022-01-19 17:21] VITALS: BP 126/72; O2SAT 100
== END 2022-01-19 17:13 | disposition home or self-care (01) ==
LOC: ER 13:56
DX: S50.02XA Contusion of left elbow, initial encounter (principal)
CPT/HCPCS: 99283

== ENCOUNTER 2023-07-18 08:17 | Inpatient (IN) | payer OTHER ==
--- OUTSIDE RECORDS SUMMARY | 2023-07-18 08:42 | XMS REPORT | Continuity of Care Document ---
:[address] [facility] t Address [address] [facility] [facility] [place] [address] Care Team Providers Name Role Phone Gab ESPINOZA, Chio Peterson Primary Care Physician [phone] Lena Díaz Attending Clinician Unavailable Ambar Rincon Attending Clinician AMBAR RINCON Attending Clinician Unavailable Jana PRIEST, Replaced By [facility] Attending Clinician Meryl Escobar MD Attending Clinician Codey Reid MD Attending Clinician WILFRIDO ANDERSON Attending Clinician Unavailable Wilfrido Anderson MD Attending Clinician Pc, Adc Echo Room 1 - Attending Clinician Unavailable Doctor Unassigned, [place] Attending Clinician Unavailable MERYL ESCOBAR Admitting Clinician Unavailable Payers Payer Name Policy Type Policy Number Effective Date Expiration Date S [place] [id number] 2020 Common HEALTHCARE DUAL 00:00:00 [facility] MEDICARE NOVITAS MB [id number] 2007 Common 00:00:[address] [facility] MEDICAID MC [id number] 2016 Common 00:00:00 [facility] MEDICARE NOVITAS MB [id number] 2007 Common 00:00:[address] [facility] MEDICAID MC [id number] 2016 Common 00:00:00 [facility] MEDICARE NOVITAS MB [id number] 2007 Common 00:00:[address] [facility] MEDICAID MC [id number] 2016 Common 00:00:00 [facility] MEDICARE NOVITAS MB [id number] 2007 Common 00:00:[address] [facility] MEDICAID MC [id number] 2016 Common 00:00:00 [facility] MEDICARE PART A [id number] 1994 \T\ B 00:00:00 [facility] [id number] 2017 PLUS 00:00:00 [employer] [id number] 2018 [place] 00:00:00 MEDICAID [id number] 2016 [place] 00:00:00 MEDICAID [id number] 2016 Common 00:00:00 [facility] MEDICARE NOVITAS MB [id number] 2007 Common 00:00:[address] [facility] MEDICAID MC [id number] 2016 Common 00:00:00 [facility] MEDICARE NOVITAS MB [id number] 2007 Common 00:00:00 [facility] MEDICARE NOVITAS MB [id number] 2007 Common 00:00:00 [facility] MEDICAID [id number] 2016 Common 00:00:00 [facility] MEDICAID [id number] 2016 Common 00:00:00 [facility] MEDICARE NOVITAS MB [id number] 2007 Common 00:00:00 [facility] Problems Condition Condition Condition Status Onset Resolution Last Treating Co mments Source Name Details Category Date Date Treatment Clinician Date DX: DX: Diagnosis Active 2022-12-23 Mem oria R41.3=OTHE R41.3=OTHE 4-24 09:14:00 l R AMNESIA, R AMNESIA, 00:00: He rmann R51.9=HEAD R51.9=HEAD 00 ACHE, ACHE, Active 12/05/2022 [facility] MRI BRAIN MRI BRAIN Diagnosis Active 2022-12-23 Memoria WO WO 12-05 09:49:00 l CONTRAST CONTRAST 00:00: Nicanor n Active 00 12/05/2022 [facility] Weakness Weakness Disease Active [facility] di [facility] 00:00: Hospita 00 l 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 [facility] Compressio Compressio Problem Active C ommon n fracture n fracture Sp troy of spine of spine - [facility] Osteoporos Osteoporos Problem Active C ommon is is Spirit [facility] Iron Iron Problem Active Common deficiency deficiency Sp troy anemia anemia - [facility] [id number] Lumbar Problem Active Common degenerati Spirit ve disc - CHI disease [facility] 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 - CHI is is without [facility] pathologic Medica l al Center fracture [id number] BPH loc Problem Active Commo n w/o ur Spirit obs/LUTS - CHI [facility] [id number] Recurrent Problem Active Com mon falls [facility] Allergic Allergic Problem Active Commo n rhinitis rhinitis [facility] [id number] Constipati Problem Active Com mon on, Spirit unspecifie - CHI d St constipati [facility] on type Medical Center [id number] Other Problem Active Common chronic Spirit pain - CHI [facility] Gastroesop GERD Problem Active Commo n hageal (gastroeso Spirit reflux phageal - CHI disease reflux St disease) 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, loss St bilateral (SN[facility]) [place] s both ears [facility] Amnesia Amnesia Problem Active 2023-07-03 Me moria (finding) (finding) 13:33:59 l Active [place] Problem 07/03/2023 [facility] Cough Cough Problem Active 2023-07-03 Memor ia (finding) (finding) 13:33:59 l Active [place] Problem 07/03/2023 [facility] [place] Headache Headache Problem Active 2023-07-03 Memoria (finding) (finding) 13:33:59 l Active [place] Problem 07/03/2023 [facility] [place] Hematoma Hematoma Problem Active 2023-07-03 Memoria of of 13:33:59 l subdural subdural Nicanor n space of space of neuraxis neuraxis (disorder) (disorder) Active Problem 07/03/2023 [facility] [place] Nasal Nasal Problem Active 2023-07-03 Memor ia congestion congestion 13:33:59 l (finding) (finding) Herm hien Active Problem 07/03/2023 [facility] [place] Cervical Cervical Problem Active 2023-07-03 Memoria radiculopa radiculopa 13:33:59 l thy thy [place] (disorder) (disorder) Active Problem 07/03/2023 [facility] [place] Lumbar Lumbar Problem Active 2023-07-03 Keenan annetta radiculopa radiculopa 13:33:59 l thy thy [place] (disorder) (disorder) Active Problem 07/03/2023 [facility] [place] Allergies, Adverse Reactions, Alerts Allergy Allergy Status Severity Reaction(s) Onset Inactive Treating Comm ents Source Name Type Date Date Clinician NO KNOWN Drug Active Univers ALLERGIE Class ity of S [facility] No Known No Known Active Memori a Medicati Medicati l on on [place] Allergie Allergie s s Social History Social Habit Start Date Stop Date Quantity Comments Source Gender identity [facility] Exposure to Not sure [facility] SARS-CoV-2 (event) Medica l Branch History of Tobacco Common Spirit - [facility] Use [facility] al Center Sexual orientation [facility] History of Social 2022-10-06 2022-10-06 [facility] function 00:00:00 00:00:00 Alcohol intake 2020-01-22 2020-01-22 [facility] 00:00:00 00:00:00 [facility] Branch Sex Assigned At [birth year] [facility] 00:00:00 00:00:00 Smoking Status Start Date Stop Date Source Tobacco smoking consumption unknown [facility] Tobacco smoking status [facility] Medications Ordered Filled Start Stop Current Ordering Indication Dosage Frequency Signature Comments Components Source Medication Medication Date Date Medication? 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, Weight gabapentin Yes 100 mg = 1 M emoria 100 mg oral 8-11 cap, PO, l capsule 15:13: Bedtime, # Herm hien 00 30 cap, 2 Refill(s), Pharmacy: [facility] [id number], 160.02, cm, 03/24/23 9:48:00 CDT, Height, 62.727, kg, 03/24/23 9:48:00 CDT, Weight gabapentin 2023-0 Yes 100 mg = 1 M emoria 100 mg oral 8-11 cap, PO, l capsule 15:13: Bedtime, # Herm hien 00 30 cap, 2 Refill(s), Pharmacy: [facility] [id number], 160.02, cm, 03/24/23 9:48:00 CDT, Height, 62.727, kg, 03/24/23 9:48:00 CDT, Weight gabapentin 2023-0 Yes 100 mg = 1 M emoria 100 mg oral 8-11 cap, PO, l capsule 15:13: Bedtime, # Herm hien 00 30 cap, 2 Refill(s), Pharmacy: [facility] [id number], 160.02, cm, 03/24/23 9:48:00 CDT, Height, 62.727, kg, 03/24/23 9:48:00 CDT, Weight gabapentin 2023-0 Yes 100 mg = 1 M emoria 100 mg oral 8-11 cap, PO, l capsule 15:13: Bedtime, # Herm hien 00 30 cap, 2 Refill(s), Pharmacy: [facility] [id number], 160.02, cm, 03/24/23 9:48:00 CDT, Height, 62.727, kg, 03/24/23 9:48:00 CDT, Weight thiamine 2023-0 Yes 100 mg = 1 Mem oria 100 mg oral 8-11 tab, PO, l tablet 15:03: Daily, X [place] 90 day, # 90 tab, 1 Refill(s), Pharmacy: [facility] [id number], 160.02, cm, 03/24/23 9:48:00 CDT, Height, 62.727, kg, 03/24/23 9:48:00 CDT, Weight thiamine 2023-0 Yes 100 mg = 1 Mem oria 100 mg oral 8-11 tab, PO, l tablet 15:03: Daily, X [place] 00 90 day, # 90 tab, 1 Refill(s), Pharmacy: [facility] [id number], 160.02, cm, 03/24/23 9:48:00 CDT, Height, 62.727, kg, 03/24/23 9:48:00 CDT, Weight thiamine 2022-0 Yes 100 mg = 1 Mem oria 100 mg oral 8-11 tab, PO, l tablet 15:03: Daily, X [place] day, # 90 tab, 1 Refill(s), Pharmacy: [facility] [id number], 160.02, cm, 03/24/23 9:48:00 CDT, Height, 62.727, kg, 03/24/23 9:48:00 CDT, Weight thiamine 2022-0 Yes 100 mg = 1 Mem oria 100 mg oral 8-11 tab, PO, l tablet 15:03: Daily, X [place] day, # 90 tab, 1 Refill(s), Pharmacy: [facility] [id number], 160.02, cm, 03/24/23 9:48:00 CDT, Height, 62.727, kg, 03/24/23 9:48:00 CDT, Weight Linzess 145 2022-0 Yes 145 Memori a mcg oral 8-11 microgram l capsule 15:02: = 1 cap, Nicanor n 00 PO, Daily, 30 minutes prior to the first meal of the day, # 30 cap, 0 Refill(s) Linzess 145 2022-0 Yes 145 Memori a mcg oral 8-11 microgram l capsule 15:02: = 1 cap, Nicanor n 00 PO, Daily, 30 minutes prior to the first meal of the day, # 30 cap, 0 Refill(s) Linzess 145 2022-0 Yes 145 Memori a mcg oral 8-11 microgram l capsule 15:02: = 1 cap, Nicanor n 00 PO, Daily, 30 minutes prior to the first meal of the day, # 30 cap, 0 Refill(s) Linzess 145 2022-0 Yes 145 Memori a mcg oral 8-11 microgram l capsule 15:02: = 1 cap, Nicanor n 00 PO, Daily, 30 minutes prior to the first meal of the day, # 30 cap, 0 Refill(s) mirtazapine 2022-0 Yes 0 Memori a 30 mg oral 8-11 Refill(s) l tablet 15:01: mirtazapine 3-0 Yes 0 Memori a 30 mg oral 8-11 Refill(s) l tablet 15:01: mirtazapine 3-0 Yes 0 Memori a 30 mg oral 8-11 Refill(s) l tablet 15:01: mirtazapine 3-0 Yes 0 Memori a 30 mg oral 8-11 Refill(s) l tablet 15:01: docusate 3-0 Yes 0 Memoria 3-03 Refill(s) l 17:18: docusate 3-0 Yes 0 Memoria 3-03 Refill(s) l 17:18: docusate 3-0 Yes 0 Memoria 3-03 Refill(s) l 17:18: docusate 3-0 Yes 0 Memoria 3-03 Refill(s) l 17:18: loratadine 2022-0 Yes 10 mg = 1 Me moria 3-03 tab, PO, l 17:17: Daily, PRN [place] 00 Itching / rash / allergy symptoms, # 20 tab, 0 Refill(s) methocarbam 2022-0 Yes 0 Memori a ol 3-03 Refill(s) l 17:17: [place] 00 loratadine 3-0 Yes 10 mg = 1 Me moria 3-03 tab, PO, l 17:17: Daily, PRN [place] 00 Itching / rash / allergy symptoms, # 20 tab, 0 Refill(s) methocarbam 3-0 Yes 0 Memori a ol 3-03 Refill(s) l 17:17: loratadine 3-0 Yes 10 mg = 1 Me moria 3-03 tab, PO, l 17:17: Daily, PRN [place] 00 Itching / rash / allergy symptoms, # 20 tab, 0 Refill(s) methocarbam 3-0 Yes 0 Memori a ol 3-03 Refill(s) l 17:17: [place] 00 loratadine 3-0 Yes 10 mg = 1 Me moria 3-03 tab, PO, l 17:17: Daily, PRN [place] 00 Itching / rash / allergy symptoms, # 20 tab, 0 Refill(s) methocarbam Yes 0 Memori a ol 03 Refill(s) l 17:17: [place] 00 methocarbam 2022- No [id number] 500mg [id number] Take 1 [facility] -[id number] (ROBAXIN) 00:00: 05:59 3D (500 mg Hosp nabil 500 MG 00 :00 total) by l tablet mouth 3 (three) times a day as needed for muscle spasms for up to 7 days. methocarbam 2022- No [id number] 500mg [id number] Take 1 [facility] 10[id number] (ROBAXIN) 00:00: 05:59 3D (500 mg Hosp nabil 500 MG 00 :00 total) by l tablet mouth 3 (three) times a day as needed for muscle spasms for up to 7 days. methocarbam 2022- No [id number] 500mg Q.[id number] Take 1 [facility] 10-06- [id number] tablet st (ROBAXIN) 00:00: 05:59 3D (500 mg Hosp nabil 500 MG 00 :00 total) by l tablet mouth 3 (three) times a day as needed for muscle spasms for up to 7 days. methocarbam 2022- No [id number] 500mg Q.[id number] Take 1 [facility] 10[id number] (ROBAXIN) 00:00: 05:59 3D (500 mg Hosp nabil 500 MG 00 :00 total) by l tablet mouth 3 (three) times a day as needed for muscle spasms for up to 7 days. Diclofenac Diclofenac 2020-08- No TID Sodium 1 % Sodium 1 % 08-17 00:00: 00:00 00 :00 Flonase 50 Flonase 50 2020- No 2{spray QD Flonase 50 MCG/ACT MCG/ACT 12-08 _in_eac MCG/ACT 00:00: h_nostr 00 il} Midodrine Midodrine Yes Na Díaz 1 tablet Common HCl HCl 7-02 Spirit 00:00: - CHI 00 [facility] cycloSPORIN 2020-0 Yes 1[drp] Place 1 [...] (twelve) Branch hours. midodrine 5 2020-0 Yes [id number] 5mg Take 1 Univers mg tablet 6-10 tablet by ity o f 00:00: mouth [place] 00 daily. Medical Take in Branch bundle tier upon waking up midodrine 5 2020-0 Yes [id number] 5mg Take 1 Univers mg tablet 6-10 tablet by ity o f 00:00: mouth [place] 00 daily. Medical Take in Branch bundle tier upon waking up midodrine 5 2020-0 Yes [id number] 5mg Take 1 Univers mg tablet 6-10 tablet by ity o f 00:00: mouth [place] 00 daily. Medical Take in Branch bundle tier upon waking up midodrine 5 2020-0 Yes [id number] 5mg Take 1 Univers mg tablet 6-10 tablet by ity o f 00:00: mouth [place] 00 daily. Medical Take in Branch bundle tier upon waking up cycloSPORIN 2019-1 Yes 1[drp] [...] 12 Medical drops (twelve) Branch hours. cycloSPORIN Yes 1[drp] Place 1 U nivers E 9-10 Drop in ity of (RESTASIS) 18:25: left eye Sumit as 0.05 % 18 every 12 Medical drops (twelve) Branch hours. midodrine 5 Yes [id number] 5mg Take 1 Univers mg tablet 9-10 tablet by ity o f 00:00: mouth [place] 00 daily. Medical Take in Branch bundle tier upon waking up midodrine 5 Yes [id number] 5mg Take 1 Univers mg tablet 9-10 tablet by ity o f 00:00: mouth [place] 00 daily. Medical Take in [place] bundle tier upon waking up midodrine 5 Yes [id number] 5mg Take 1 Univers mg tablet 9-10 tablet by ity o f 00:00: mouth [place] 00 daily. Medical Take in [place] bundle tier upon waking up midodrine 5 2020- No [id number] 5mg Take 1 Univers mg tablet 9-10 06-10 tablet by ity of 00:00: 00:00 mouth [place] 00 :00 daily. Medical Take in [place] bundle tier upon waking up midodrine 5 2020- No [id number] 5mg Take 1 Univers mg tablet 9-10 06-10 tablet by ity of 00:00: 00:00 mouth [place] 00 :00 daily. Medical Take in [place] bundle tier upon waking up midodrine 5 2019- No [id number] 5mg Take 1 Univers mg tablet 5-29 09-10 tablet by ity of 00:00: 00:00 mouth [place] 00 :00 daily. Medical Take in [place] bundle tier upon waking up midodrine 5 2019- No [id number] 5mg Take 1 Univers mg tablet 5-29 09-10 tablet by ity of 00:00: 00:00 mouth [place] 00 :00 daily. Medical Take in [place] bundle tier upon waking up Ventolin Ventolin 2017-08 Yes Na Díaz 2 puffs as Common HFA HFA 09-03 needed Spirit 00:00: - CHI 00 [facility] Incruse Incruse 2017-08 Yes Na Díaz 1 puff Co mmon Ellipta Ellipta 09-03 Spirit 00:00: - CHI 00 [facility] Incruse Incruse 2017-08 No 1{puff} QD Incruse Ellipta Ellipta 1-21 Ellipta 62.5 62.5 00:00: 62.5 MCG/INH MCG/INH 00 MCG/INH Ventolin Ventolin 2017-08 No 2{puffs QID Ventolin HFA 108 (90 HFA 108 (90 1-21 _as_nee HFA 108 Base) Base) 00:00: ded} (90 Base) MCG/ACT MCG/ACT 00 MCG/ACT Incruse Incruse 2018 No 1{puff} QD Incruse Ellipta Ellipta 1-21 Ellipta 62.5 62.5 00:00: 62.5 MCG/INH MCG/INH 00 MCG/INH Ventolin Ventolin 2017-08 No 2{puffs QID Ventolin HFA 108 (90 HFA 108 (90 1-21 _as_nee HFA 108 Base) Base) 00:00: ded} (90 Base) MCG/ACT MCG/ACT 00 MCG/ACT Ventolin Ventolin 2017-08 No 2{puffs QID Ventolin HFA 108 (90 HFA 108 (90 1-21 _as_nee HFA 108 Base) Base) 00:00: ded} (90 Base) MCG/ACT MCG/ACT 00 MCG/ACT Incruse Incruse 2018 No 1{puff} QD Incruse Ellipta Ellipta 1-21 Ellipta 62.5 62.5 00:00: 62.5 MCG/INH MCG/INH 00 MCG/INH Ventolin Ventolin 2017-08 No 2{puffs QID Ventolin HFA 108 (90 HFA 108 (90 1-21 _as_nee HFA 108 Base) Base) 00:00: ded} (90 Base) MCG/ACT MCG/ACT 00 MCG/ACT Incruse Incruse 2018 No 1{puff} QD Incruse Ellipta Ellipta 1-21 Ellipta 62.5 62.5 00:00: 62.5 MCG/INH MCG/INH 00 MCG/INH Ventolin Ventolin 2017-08 No 2{puffs QID Ventolin HFA 108 (90 HFA 108 (90 1-21 _as_nee HFA 108 Base) Base) 00:00: ded} (90 Base) MCG/ACT MCG/ACT 00 MCG/ACT Incruse Incruse 2017-08 No 1{puff} QD Incruse Ellipta Ellipta 1-21 Ellipta 62.5 62.5 00:00: 62.5 MCG/INH MCG/INH 00 MCG/INH Ventolin Ventolin 2017-08 No 2{puffs QID HFA 108 (90 HFA 108 (90 1-21 _as_nee Base) Base) 00:00: ded} MCG/ACT MCG/ACT 00 Incruse Incruse 2017-08 No 1{puff} QD Ellipta Ellipta 1-21 62.5 62.5 00:00: MCG/INH MCG/INH 00 Incruse Incruse 2017-08 No 1{puff} QD Incruse Ellipta Ellipta 1-21 Ellipta 62.5 62.5 00:00: 62.5 MCG/INH MCG/INH 00 MCG/INH Ventolin Ventolin 2017-08 No 2{puffs QID Ventolin HFA 108 (90 HFA 108 (90 1-21 _as_nee HFA 108 Base) Base) 00:00: ded} (90 Base) MCG/ACT MCG/ACT 00 MCG/ACT Incruse Incruse 2017-08 No 1{puff} QD Incruse Ellipta Ellipta 1-21 Ellipta 62.5 62.5 00:00: 62.5 MCG/INH MCG/INH 00 MCG/INH Ventolin Ventolin 2017-08 No 2{puffs QID Ventolin HFA 108 (90 HFA 108 (90 1-21 _as_nee HFA 108 Base) Base) 00:00: ded} (90 Base) MCG/ACT MCG/ACT 00 MCG/ACT Incruse Incruse 2017-08 No 1{puff} QD Incruse Ellipta Ellipta 1-21 Ellipta 62.5 62.5 00:00: 62.5 MCG/INH MCG/INH 00 MCG/INH Ventolin Ventolin 2017-08 No 2{puffs QID Ventolin HFA 108 (90 HFA 108 (90 1-21 _as_nee HFA 108 Base) Base) 00:00: ded} (90 Base) MCG/ACT MCG/ACT 00 MCG/ACT Ketoconazol Ketoconazol Yes Na Díaz 1 Common e e applicatio Spirit n to - CHI affected [facility] Linzess Linzess Yes Na Díaz 1 capsule C ommon [facility] Mirtazapine Mirtazapine Yes Na Díaz 1 tablet Common at bedtime [facility] Caltrate Caltrate Yes Na Díaz 1 tablet Common 600+D 600+D with a Spirit meal [facility] Yes Na Díaz 1 tablet Comm on Allergy Allergy [facility] Vitamin B12 Vitamin B12 Yes Na Díaz 1 tablet Common [facility] Prolia Prolia Yes Na Díaz as Common directed [facility] Benzonatate Benzonatate Yes Na Díaz 1 capsule Common as needed [facility] Ferrous Ferrous Yes Na Díaz 1 tablet Co mmon Sulfate Sulfate [facility] Aspirin Aspirin Yes Na Díaz 1 tablet Co mmon Adult Low Adult Low Spiri t Dose [facility] Zantac Zantac Yes Na Díaz 1 tablet Comm on at bedtime [facility] Flonase Flonase Yes Na Díaz 1 spray in Common each [facility] nostril [facility] Singulair Singulair Yes Na Díaz 1 tablet Common in the [facility] evening [facility] No 1{table QD [facility] Allergy 10 Allergy 10 t} Allergy 10 MG MG MG Ventolin Ventolin No 2{puffs QID Ventolin HFA 108 (90 HFA 108 (90 _as_nee HFA 108 Base) Base) ded} (90 Base) MCG/ACT MCG/ACT MCG/ACT Midodrine Midodrine No 1{table Midodrine HCl 2.5 MG HCl 2.5 MG t} HCl 2.5 MG Caltrate Caltrate No 1{table QD Caltrate 600+D 600+D t_with_ 600+D 600-800 600-800 a_meal} 600-800 MG-UNIT MG-UNIT MG-UNIT Linzess 145 Linzess 145 No 1{capsu QD Linzess MCG MCG le} 145 MCG Aspirin Aspirin No 1{table QD Aspirin Adult Low Adult Low t} Adult Low Dose 81 MG Dose 81 MG Dose 81 MG Ferrous Ferrous No 1{table QD Ferrous Sulfate 325 Sulfate 325 t} Sulfate (65 Fe) MG (65 Fe) MG 325 (65 Fe) MG Ketoconazol Ketoconazol No 1{appli Ketoconazo e 2 % e 2 % cation_ le 2 % to_affe cted_ar ea} Singulair Singulair No 1{table QD Singulair 10 MG 10 MG t_in_th 10 MG e_eveni ng} Benzonatate Benzonatate No 1{capsu TID Benzonatat 100 MG 100 MG le_as_n e 100 MG eeded} Prolia 60 Prolia 60 No Prolia 60 MG/ML MG/ML MG/ML Zantac 150 Zantac 150 No 1{table QD Zantac 150 MG MG t_at_be MG dtime} Vitamin B12 Vitamin B12 No 1{table QD Vitamin 1000 MCG 1000 MCG t} B12 1000 MCG Mirtazapine Mirtazapine No 1{table QD Mirtazapin 30 MG 30 MG t_at_be e 30 MG dtime} Flonase 50 Flonase 50 No 1{spray QD Flonase 50 MCG/ACT MCG/ACT _in_eac MCG/ACT h_nostr il} Mirtazapine Mirtazapine No 1{table QD Mirtazapin 30 MG 30 MG t_at_be e 30 MG dtime} Singulair Singulair No 1{table QD Singulair 10 MG 10 MG t_in_th 10 MG e_eveni ng} Caltrate Caltrate No 1{table QD Caltrate 600+D 600+D t_with_ 600+D 600-800 600-800 a_meal} 600-800 MG-UNIT MG-UNIT MG-UNIT Midodrine Midodrine No 1{table Midodrine HCl 2.5 MG HCl 2.5 MG t} HCl 2.5 MG Ferrous Ferrous No 1{table QD Ferrous Sulfate 325 Sulfate 325 t} Sulfate (65 Fe) MG (65 Fe) MG 325 (65 Fe) MG Vitamin B12 Vitamin B12 No 1{table QD Vitamin 1000 MCG 1000 MCG t} B12 1000 MCG Aspirin Aspirin No 1{table QD Aspirin Adult Low Adult Low t} Adult Low Dose 81 MG Dose 81 MG Dose 81 MG Zantac 150 Zantac 150 No 1{table QD Zantac 150 MG MG t_at_be MG dtime} Ketoconazol Ketoconazol No 1{appli Ketoconazo e 2 % e 2 % cation_ le 2 % to_affe cted_ar ea} Prolia 60 Prolia 60 No Prolia 60 MG/ML MG/ML MG/ML Benzonatate Benzonatate No 1{capsu TID Benzonatat 100 MG 100 MG le_as_n e 100 MG eeded} Zyrtec Zyrtec No 1{table QD Zyrtec Allergy 10 Allergy 10 t} Allergy 10 MG MG MG Linzess 145 Linzess 145 No 1{capsu QD Linzess MCG MCG le} 145 MCG Ventolin Ventolin No 2{puffs QID Ventolin HFA 108 (90 HFA 108 (90 _as_nee HFA 108 Base) Base) ded} (90 Base) MCG/ACT MCG/ACT MCG/ACT Flonase 50 Flonase 50 No 1{spray QD Flonase 50 MCG/ACT MCG/ACT _in_eac MCG/ACT h_nostr il} Ketoconazol Ketoconazol No 1{appli Ketoconazo e 2 % e 2 % cation_ le 2 % to_affe cted_ar ea} Singulair Singulair No 1{table QD Singulair 10 MG 10 MG t_in_th 10 MG e_eveni ng} Flonase 50 Flonase 50 No 1{spray QD Flonase 50 MCG/ACT MCG/ACT _in_eac MCG/ACT h_nostr il} Flonase 50 Flonase 50 No 2{spray QD Flonase 50 MCG/ACT MCG/ACT _in_eac MCG/ACT h_nostr il} Zantac 150 Zantac 150 No 1{table QD Zantac 150 MG MG t_at_be MG dtime} Vitamin B12 Vitamin B12 No 1{table QD Vitamin 1000 MCG 1000 MCG t} B12 1000 MCG ZyrTEC ZyrTEC No 1{table QD ZyrTEC Allergy 10 Allergy 10 t} Allergy 10 MG MG MG Caltrate Caltrate No 1{table QD Caltrate 600+D 600+D t_with_ 600+D 600-800 600-800 a_meal} 600-800 MG-UNIT MG-UNIT MG-UNIT Ventolin Ventolin No 2{puffs QID Ventolin HFA 108 (90 HFA 108 (90 _as_nee HFA 108 Base) Base) ded} (90 Base) MCG/ACT MCG/ACT MCG/ACT Linzess 145 Linzess 145 No 1{capsu QD Linzess MCG MCG le} 145 MCG Ferrous Ferrous No 1{table QD Ferrous Sulfate 325 Sulfate 325 t} Sulfate (65 Fe) MG (65 Fe) MG 325 (65 Fe) MG Prolia 60 Prolia 60 No Prolia 60 MG/ML MG/ML MG/ML Mirtazapine Mirtazapine No 1{table QD Mirtazapin 30 MG 30 MG t_at_be e 30 MG dtime} Benzonatate Benzonatate No 1{capsu TID Benzonatat 100 MG 100 MG le_as_n e 100 MG eeded} Aspirin Aspirin No 1{table QD Aspirin Adult Low Adult Low t} Adult Low Dose 81 MG Dose 81 MG Dose 81 MG Midodrine Midodrine No 1{table Midodrine HCl 2.5 MG HCl 2.5 MG t} HCl 2.5 MG Ketoconazol Ketoconazol No 1{appli Ketoconazo e 2 % e 2 % cation_ le 2 % to_affe cted_ar ea} Singulair Singulair No 1{table QD Singulair 10 MG 10 MG t_in_th 10 MG e_eveni ng} Flonase 50 Flonase 50 No 1{spray QD Flonase 50 MCG/ACT MCG/ACT _in_eac MCG/ACT h_nostr il} Flonase 50 Flonase 50 No 2{spray QD Flonase 50 MCG/ACT MCG/ACT _in_eac MCG/ACT h_nostr il} Zantac 150 Zantac 150 No 1{table QD Zantac 150 MG MG t_at_be MG dtime} Vitamin B12 Vitamin B12 No 1{table QD Vitamin 1000 MCG 1000 MCG t} B12 1000 MCG ZyrTEC ZyrTEC No 1{table QD ZyrTEC Allergy 10 Allergy 10 t} Allergy 10 MG MG MG Caltrate Caltrate No 1{table QD Caltrate 600+D 600+D t_with_ 600+D 600-800 600-800 a_meal} 600-800 MG-UNIT MG-UNIT MG-UNIT Ventolin Ventolin No 2{puffs QID Ventolin HFA 108 (90 HFA 108 (90 _as_nee HFA 108 Base) Base) ded} (90 Base) MCG/ACT MCG/ACT MCG/ACT Linzess 145 Linzess 145 No 1{capsu QD Linzess MCG MCG le} 145 MCG Ferrous Ferrous No 1{table QD Ferrous Sulfate 325 Sulfate 325 t} Sulfate (65 Fe) MG (65 Fe) MG 325 (65 Fe) MG Prolia 60 Prolia 60 No Prolia 60 MG/ML MG/ML MG/ML Mirtazapine Mirtazapine No 1{table QD Mirtazapin 30 MG 30 MG t_at_be e 30 MG dtime} Benzonatate Benzonatate No 1{capsu TID Benzonatat 100 MG 100 MG le_as_n e 100 MG eeded} Aspirin Aspirin No 1{table QD Aspirin Adult Low Adult Low t} Adult Low Dose 81 MG Dose 81 MG Dose 81 MG Midodrine Midodrine No 1{table Midodrine HCl 2.5 MG HCl 2.5 MG t} HCl 2.5 MG Ketoconazol Ketoconazol No 1{appli Ketoconazo e 2 % e 2 % cation_ le 2 % to_affe cted_ar ea} Singulair Singulair No 1{table QD Singulair 10 MG 10 MG t_in_th 10 MG e_eveni ng} Flonase 50 Flonase 50 No 1{spray QD Flonase 50 MCG/ACT MCG/ACT _in_eac MCG/ACT h_nostr il} Flonase 50 Flonase 50 No 2{spray QD Flonase 50 MCG/ACT MCG/ACT _in_eac MCG/ACT h_nostr il} Zantac 150 Zantac 150 No 1{table QD Zantac 150 MG MG t_at_be MG dtime} Vitamin B12 Vitamin B12 No 1{table QD Vitamin 1000 MCG 1000 MCG t} B12 1000 MCG ZyrTEC ZyrTEC No 1{table QD ZyrTEC Allergy 10 Allergy 10 t} Allergy 10 MG MG MG Caltrate Caltrate No 1{table QD Caltrate 600+D 600+D t_with_ 600+D 600-800 600-800 a_meal} 600-800 MG-UNIT MG-UNIT MG-UNIT Ventolin Ventolin No 2{puffs QID Ventolin HFA 108 (90 HFA 108 (90 _as_nee HFA 108 Base) Base) ded} (90 Base) MCG/ACT MCG/ACT MCG/ACT Linzess 145 Linzess 145 No 1{capsu QD Linzess MCG MCG le} 145 MCG Ferrous Ferrous No 1{table QD Ferrous Sulfate 325 Sulfate 325 t} Sulfate (65 Fe) MG (65 Fe) MG 325 (65 Fe) MG Prolia 60 Prolia 60 No Prolia 60 MG/ML MG/ML MG/ML Mirtazapine Mirtazapine No 1{table QD Mirtazapin 30 MG 30 MG t_at_be e 30 MG dtime} Benzonatate Benzonatate No 1{capsu TID Benzonatat 100 MG 100 MG le_as_n e 100 MG eeded} Aspirin Aspirin No 1{table QD Aspirin Adult Low Adult Low t} Adult Low Dose 81 MG Dose 81 MG Dose 81 MG Midodrine Midodrine No 1{table Midodrine HCl 2.5 MG HCl 2.5 MG t} HCl 2.5 MG Flonase 50 Flonase 50 No 1{spray QD MCG/ACT MCG/ACT _in_eac h_nostr il} Benzonatate Benzonatate No 1{capsu TID 100 MG 100 MG le_as_n eeded} Mirtazapine Mirtazapine No 1{table QD 30 MG 30 MG t_at_be dtime} ZyrTEC ZyrTEC No 1{table QD Allergy 10 Allergy 10 t} MG MG Linzess 145 Linzess 145 No 1{capsu QD MCG MCG le} Flonase 50 Flonase 50 No 2{spray QD MCG/ACT MCG/ACT _in_eac h_nostr il} Ventolin Ventolin No 2{puffs QID HFA 108 (90 HFA 108 (90 _as_nee Base) Base) ded} MCG/ACT MCG/ACT Aspirin Aspirin No 1{table QD Adult Low Adult Low t} Dose 81 MG Dose 81 MG Midodrine Midodrine No 1{table HCl 2.5 MG HCl 2.5 MG t} Prolia 60 Prolia 60 No MG/ML MG/ML Caltrate Caltrate No 1{table QD 600+D 600+D t_with_ 600-800 600-800 a_meal} MG-UNIT MG-UNIT Ketoconazol Ketoconazol No 1{appli e 2 % e 2 % cation_ to_affe cted_ar ea} Ferrous Ferrous No 1{table QD Sulfate 325 Sulfate 325 t} (65 Fe) MG (65 Fe) MG Singulair Singulair No 1{table QD 10 MG 10 MG t_in_th e_eveni ng} Vitamin B12 Vitamin B12 No 1{table QD 1000 MCG 1000 MCG t} Zantac 150 Zantac 150 No 1{table QD MG MG t_at_be dtime} Mirtazapine Mirtazapine No 1{table QD Mirtazapin 30 MG 30 MG t_at_be e 30 MG dtime} Linzess 145 Linzess 145 No 1{capsu QD Linzess MCG MCG le} 145 MCG Singulair Singulair No 1{table QD Singulair 10 MG 10 MG t_in_th 10 MG e_eveni ng} Flonase 50 Flonase 50 No 1{spray QD Flonase 50 MCG/ACT MCG/ACT _in_eac MCG/ACT h_nostr il} Prolia 60 Prolia 60 No Prolia 60 MG/ML MG/ML MG/ML Midodrine Midodrine No 1{table Midodrine HCl 2.5 MG HCl 2.5 MG t} HCl 2.5 MG Ferrous Ferrous No 1{table QD Ferrous Sulfate 325 Sulfate 325 t} Sulfate (65 Fe) MG (65 Fe) MG 325 (65 Fe) MG Aspirin Aspirin No 1{table QD Aspirin Adult Low Adult Low t} Adult Low Dose 81 MG Dose 81 MG Dose 81 MG Vitamin B12 Vitamin B12 No 1{table QD Vitamin 1000 MCG 1000 MCG t} B12 1000 MCG ZyrTEC ZyrTEC No 1{table QD ZyrTEC Allergy 10 Allergy 10 t} Allergy 10 MG MG MG Ventolin Ventolin No 2{puffs QID Ventolin HFA 108 (90 HFA 108 (90 _as_nee HFA 108 Base) Base) ded} (90 Base) MCG/ACT MCG/ACT MCG/ACT Ketoconazol Ketoconazol No 1{appli Ketoconazo e 2 % e 2 % cation_ le 2 % to_affe cted_ar ea} Flonase 50 Flonase 50 No 2{spray QD Flonase 50 MCG/ACT MCG/ACT _in_eac MCG/ACT h_nostr il} Benzonatate Benzonatate No 1{capsu TID Benzonatat 100 MG 100 MG le_as_n e 100 MG eeded} Caltrate Caltrate No 1{table QD Caltrate 600+D 600+D t_with_ 600+D 600-800 600-800 a_meal} 600-800 MG-UNIT MG-UNIT MG-UNIT Zantac 150 Zantac 150 No 1{table QD Zantac 150 MG MG t_at_be MG dtime} Zyrtec Zyrtec No 1{table QD Zyrtec Allergy 10 Allergy 10 t} Allergy 10 MG MG MG Ventolin Ventolin No 2{puffs QID Ventolin HFA 108 (90 HFA 108 (90 _as_nee HFA 108 Base) Base) ded} (90 Base) MCG/ACT MCG/ACT MCG/ACT Midodrine Midodrine No 1{table Midodrine HCl 2.5 MG HCl 2.5 MG t} HCl 2.5 MG Caltrate Caltrate No 1{table QD Caltrate 600+D 600+D t_with_ 600+D 600-800 600-800 a_meal} 600-800 MG-UNIT MG-UNIT MG-UNIT Linzess 145 Linzess 145 No 1{capsu QD Linzess MCG MCG le} 145 MCG Aspirin Aspirin No 1{table QD Aspirin Adult Low Adult Low t} Adult Low Dose 81 MG Dose 81 MG Dose 81 MG Ferrous Ferrous No 1{table QD Ferrous Sulfate 325 Sulfate 325 t} Sulfate (65 Fe) MG (65 Fe) MG 325 (65 Fe) MG Ketoconazol Ketoconazol No 1{appli Ketoconazo e 2 % e 2 % cation_ le 2 % to_affe cted_ar ea} Singulair Singulair No 1{table QD Singulair 10 MG 10 MG t_in_th 10 MG e_eveni ng} Benzonatate Benzonatate No 1{capsu TID Benzonatat 100 MG 100 MG le_as_n e 100 MG eeded} Prolia 60 Prolia 60 No Prolia 60 MG/ML MG/ML MG/ML Zantac 150 Zantac 150 No 1{table QD Zantac 150 MG MG t_at_be MG dtime} Vitamin B12 Vitamin B12 No 1{table QD Vitamin 1000 MCG 1000 MCG t} B12 1000 MCG Mirtazapine Mirtazapine No 1{table QD Mirtazapin 30 MG 30 MG t_at_be e 30 MG dtime} Flonase 50 Flonase 50 No 1{spray QD Flonase 50 MCG/ACT MCG/ACT _in_eac MCG/ACT h_nostr il} Zyrtec Zyrtec No 1{table QD Zyrtec Allergy 10 Allergy 10 t} Allergy 10 MG MG MG Ventolin Ventolin No 2{puffs QID Ventolin HFA 108 (90 HFA 108 (90 _as_nee HFA 108 Base) Base) ded} (90 Base) MCG/ACT MCG/ACT MCG/ACT Midodrine Midodrine No 1{table Midodrine HCl 2.5 MG HCl 2.5 MG t} HCl 2.5 MG Caltrate Caltrate No 1{table QD Caltrate 600+D 600+D t_with_ 600+D 600-800 600-800 a_meal} 600-800 MG-UNIT MG-UNIT MG-UNIT Linzess 145 Linzess 145 No 1{capsu QD Linzess MCG MCG le} 145 MCG Aspirin Aspirin No 1{table QD Aspirin Adult Low Adult Low t} Adult Low Dose 81 MG Dose 81 MG Dose 81 MG Ferrous Ferrous No 1{table QD Ferrous Sulfate 325 Sulfate 325 t} Sulfate (65 Fe) MG (65 Fe) MG 325 (65 Fe) MG Ketoconazol Ketoconazol No 1{appli Ketoconazo e 2 % e 2 % cation_ le 2 % to_affe cted_ar ea} Singulair Singulair No 1{table QD Singulair 10 MG 10 MG t_in_th 10 MG e_eveni ng} Benzonatate Benzonatate No 1{capsu TID Benzonatat 100 MG 100 MG le_as_n e 100 MG eeded} Prolia 60 Prolia 60 No Prolia 60 MG/ML MG/ML MG/ML Zantac 150 Zantac 150 No 1{table QD Zantac 150 MG MG t_at_be MG dtime} Vitamin B12 Vitamin B12 No 1{table QD Vitamin 1000 MCG 1000 MCG t} B12 1000 MCG Mirtazapine Mirtazapine No 1{table QD Mirtazapin 30 MG 30 MG t_at_be e 30 MG dtime} Flonase 50 Flonase 50 No 1{spray QD Flonase 50 MCG/ACT MCG/ACT _in_eac MCG/ACT h_nostr il} Vital Signs Vital Name Observation Time Observation Value Comments Source height 2021-03-25 10:00:00 66.50 [in_i] [facility] weight 2021-03-25 10:00:00 150 [lb_av] [facility] bmi 2021-03-25 10:00:00 23.85 kg/m2 [facility] height 2021-03-19 15:40:00 66.50 [in_i] [facility] weight 2021-03-19 15:40:00 150 [lb_av] [facility] temperature 2021-03-19 15:40:00 98.1 [degF] [facility] 2021-03-19 15:40:00 23.85 kg/m2 [facility] oximetry 2021-03-19 15:40:00 98 % [facility] respiratory rate 2021-03-19 15:40:00 16 /min Comm on [facility] blood pressure 2021-03-19 15:40:00 139 [facility] blood pressure 2021-03-19 15:40:00 51 mm[Hg] [facility] height 2020-12-08 13:20:00 66.50 [in_i] [facility] weight 2020-12-08 13:20:00 149 [lb_av] [facility] temperature 2020-12-08 13:20:00 98 [degF] [facility] bmi 2020-12-08 13:20:00 23.69 kg/m2 [facility] oximetry 2020-12-08 13:20:00 98 % [facility] respiratory rate 2020-12-08 13:20:00 16 /min Comm on [facility] blood pressure 2020-12-08 13:20:00 142 mm[Hg] [facility] systolic [facility] blood pressure 2020-12-08 13:20:00 68 mm[Hg] [facility] diastolic [facility] oximetry 2020-09-08 15:00:00 97 % Common [facility] respiratory rate 2020-09-08 15:00:00 16 /min Comm on [facility] blood pressure 2020-09-08 15:00:00 147 mm[Hg] [facility] systolic [facility] blood pressure 2020-09-08 15:00:00 70 mm[Hg] [facility] diastolic [facility] height 2020-09-08 15:00:00 66.50 [in_i] [facility] weight 2020-09-08 15:00:00 151.2 [lb_av] [facility] temperature 2020-09-08 15:00:00 97.9 [degF] [facility] bmi 2020-09-08 15:00:00 24.04 kg/m2 [facility] Systolic blood 2020-01-30 17:58:00 157 mm[Hg] [facility]iver [facility] of pressure [facility] Diastolic blood 2020-01-30 17:58:00 69 mm[Hg] [facility] Heart rate 2020-01-30 17:58:00 65 /min [facility] Body height 2020-01-30 17:58:00 167.6 cm [facility] Body weight 2020-01-30 17:58:00 70.308 kg [facility] BMI 2020-01-30 17:58:00 25.02 kg/m2 [facility] Systolic blood 2020-01-22 18:20:00 144 mm[Hg] our machine [facility] Diastolic blood 2020-01-22 18:20:00 61 mm[Hg] our machine [facility] Heart rate 2020-01-22 18:15:00 68 /min [facility] Respiratory rate 2020-01-22 18:15:00 19 /min [facility] Body weight 2020-01-22 18:15:00 70.489 kg Universi ty [facility] BMI 2020-01-22 18:15:00 25.08 kg/m2 [facility] Oxygen saturation 2020-01-22 18:15:00 96 /min Uni versity of in Arterial blood [facility] by Pulse oximetry Branch Systolic blood 2019-04-23 18:23:00 132 mm[Hg] Univer [facility]ity of pressure [facility] Diastolic blood 2019-04-23 18:23:00 57 mm[Hg] Unive [facility]ity of pressure [facility] Heart rate 2019-04-23 18:23:00 65 /min Universi ty [facility] Respiratory rate 2019-04-23 18:23:00 19 /min [facility] Body height 2019-04-23 18:23:00 167.6 cm Universi ty [facility] Body weight 2019-04-23 18:23:00 72.439 kg Universi ty [facility] BMI 2019-04-23 18:23:00 25.78 kg/m2 Universi ty [facility] Oxygen saturation 2019-04-23 18:23:00 97 /min Uni versity of in Arterial blood [facility] oximetry Branch Systolic (mm Hg) 2023-06-30 16:03:00 Keenan reddy [facility] Diastolic (mm Hg) 2023-06-30 16:03:00 Mem orial [facility] Heart Rate 2023-06-30 16:03:00 [facility] Height 2023-06-30 16:03:00 5 [ft_i] [facility] Weight 2023-06-30 16:03:00 [facility] BMI Calculated 2023-06-30 16:03:00 Abena al [facility] Height 2023-03-24 14:45:00 5 [ft_i] [facility] Weight 2023-03-24 14:45:00 [facility] BMI Calculated 2023-03-24 14:45:00 Memori al [facility] Systolic (mm Hg) 2023-03-24 14:45:00 Keenan rial [facility] Diastolic (mm Hg) 2023-03-24 14:45:00 Mem orial [facility] Heart Rate 2023-03-24 14:45:00 [facility] Systolic (mm Hg) 2023-01-13 14:34:00 Keenan rial [facility] Diastolic (mm Hg) 2023-01-13 14:34:00 Mem orial [facility] Heart Rate 2023-01-13 14:34:00 [facility] Height 2023-01-13 14:34:00 5 [ft_i] [facility] Weight 2023-01-13 14:34:00 [facility] BMI Calculated 2023-01-13 14:34:00 Memori al [facility] Systolic (mm Hg) 2022-10-14 17:14:00 Keenan rial [facility] Diastolic (mm Hg) 2022-10-14 17:14:00 Mem orial [facility] Heart Rate 2022-10-14 17:14:00 [facility] Height 2022-10-14 17:14:00 5 [ft_i] [facility] Weight 2022-10-14 17:14:00 [facility] BMI Calculated 2022-10-14 17:14:00 Memori al [facility] Systolic blood 2022-10-06 14:51:41 147 mm[Hg] Method ist pressure [facility] Diastolic blood 2022-10-06 14:51:41 69 mm[Hg] [facility] Heart rate 2022-10-06 14:51:41 61 /min [facility] Body temperature 2022-10-06 14:51:[address] [facility] Respiratory rate 2022-10-06 14:51:41 16 /min [facility] Oxygen saturation 2022-10-06 14:51:41 95 /[facility] oximetry Body weight 2022-10-05 17:38:00 59.013 kg [facility] BMI 2022-10-05 17:38:00 18.15 kg/m2 [facility] Body height 2022-10-05 17:00:00 180.3 cm [facility] Procedures Procedure Date / Time Performing Clinician Source Performed DURABLE MEDICAL EQUIPMENT 2022-10-06 17:52:27 Codey Reid [facility] BASIC METABOLIC PANEL 2022-10-06 10:39:00 Codey Reid [facility] CBC WITH PLATELET AND 2022-10-06 10:39:00 Codey Reid [facility] DIFFERENTIAL MAGNESIUM LEVEL 2022-10-06 10:39:00 Ric Dunbar spital [place] ESTIMATED GFR 2022-10-06 10:39:00 Codey Reid spital TTE COMPLETE, W CONTRAST, 2022-10-05 21:34:00 Ric Dunbar [facility] W DOPPLER ([id number]) [place] THYROID STIMULATING 2022-10-05 19:44:00 [facility], FREE 2022-10-05 19:44:00 Codey Reid spital B NATRIURETIC PEPTIDE 2022-10-05 18:27:00 Codey Reid [facility] MRI BRAIN WO CONTRAST 2022-10-05 15:40:25 [facility] MAGNESIUM LEV[facility] 2022-10-05 12:25:00 Shawn [facility] ospital PHOSPHORUS LEVEL 2022-10-05 12:25:00 [facility] THYROID STIMULATING 2022-10-05 12:25:00 Meryl Escobar [facility] HORMONE VITAMIN B12 LEVEL 2022-10-05 12:25:[facility] 2022-10-05 12:25:00 Shawn [facility] ospital ESTIMATED GFR 2022-10-05 12:25:00 Shawn [facility] ospital CBC WITH PLATELET AND 2022-10-05 12:25:00 Meryl Escobar [facility] DIFFERENTIAL PROTHROMBIN TIME WITH INR 2022-10-05 12:25:00 Shawn [facility] PARTIAL THROMBOPLASTIN 2022-10-05 12:25:[address] [facility] TIME (PTT) COMPREHENSIVE METABOLIC 2022-10-05 12:25:00 Meryl Escobar Met [facility] PANEL COVID-19 QUALITATIVE 2022-10-05 06:11:00 [facility] RT-PCR LACTIC ACID LEVEL, SEPSIS 2022-10-05 00:21:00 Nirali Stovallh Josise [facility] - NOW AND REPEAT 2X EVERY 3 HOURS CBC WITH PLATELET AND 2022-10-04 22:08:00 [facility]OT[facility]OMBIN TIME WITH INR 2022-10-04 22:08:00 Jana [facility] PARTIAL THROMBOPLASTIN 2022-10-04 22:08:00 Stovall [facility] TIME (PTT) COMPREHENSIVE METABOLIC 2022-10-04 22:08:00 [facility] LACTIC ACID LEVEL, SEPSIS 2022-10-04 22:08:00 [facility] NOW [facility] REPEAT 2X EVERY 3 HOURS TROPONIN T 2022-10-04 22:08:00 [facility] 2022-10-04 22:08:00 [facility] CT HEAD WO CONTRAST 2022-10-04 21:57:06 [facility] PRE[facility]INARY 2022-10-04 21:45:09 [facility] 12-LEAD 2022-10-04 20:34:55 Jana [facility] ASSIGNMENT OF BENEFITS 2020-01-22 17:42:39 Doctor Unassigned, [facility] Hernia repair [facility] Cholecystectomy [facility] Prostatectomy [facility] Plan of Care Planned Activity Planned Date Details Comments Source Future Scheduled 2023-07-16 65+ PNEUMOCOCCAL [facility] Test 14:04:32 VACCINE (1 - PCV) [code = 65+ PNEUMOCOCCAL VACCINE (1 - PCV)] Future Scheduled 2023-07-16 SHINGLES VACCINES ([address] [facility] Test 14:04:32 of 2) [code = SHINGLES VACCINES (1 of 2)] Future Scheduled 2023-07-16 COVID-19 VACCINE (5 - Me [facility] Test 14:04:32 season) [code = COVID-19 VACCINE ( - season)] Future Scheduled 2023-07-16 INFLUENZA VACCINE (#1) [facility] Test 14:04:32 [code = INFLUENZA VACCINE (#1)] Future Scheduled 2023-05-28 65+ [facility] 18:08:54 VACCINE (1 - PCV) [code = 65+ PNEUMOCOCCAL VACCINE (1 - PCV)] Future Scheduled 2023-05-28 SHINGLES VACCINES ([address] [facility] Test 18:08:54 of 2) [code = SHINGLES VACCINES (1 of 2)] Future Scheduled 2023-05-28 RSV VACCINES > [address] [facility] Test 18:08:54 (1 - 1-dose 60+ series) [code = RSV VACCINES > 60 YR (1 - 1-dose 60+ series)] Future Scheduled 2023-05-28 COVID-19 VACCINE (5 - [facility] Test 18:08:54 season) [code = COVID-19 VACCINE ( season)] Future Scheduled 2023-05-28 INFLUENZA VACCINE (#1) [facility] Test 18:08:54 [code = INFLUENZA VACCINE (#1)] Future Scheduled 2023-04-12 65+ [facility] 01:03:27 VACCINE (1 - PCV) [code = 65+ PNEUMOCOCCAL VACCINE (1 - PCV)] Future Scheduled 2023-04-12 SHINGLES VACCINES ([address] [facility] Test 01:03:27 of 2) [code = SHINGLES VACCINES (1 of 2)] Future Scheduled 2023-04-12 COVID-19 VACCINE (5 - Me [facility] Test 01:03:27 Moderna series) [code = COVID-19 VACCINE (5 - Moderna series)] Future Scheduled 2023-04-12 INFLUENZA VACCINE (#1) [facility] Test 01:03:27 [code = INFLUENZA VACCINE (#1)] Future Scheduled 2023-04-12 65+ PNEUMOCOCCAL Methodi [facility] Test 01:03:27 VACCINE (1 - PCV) [code = 65+ PNEUMOCOCCAL VACCINE (1 - PCV)] Future Scheduled 2023-04-12 SHINGLES VACCINES ([address] [facility] Test 01:03:27 of 2) [code = SHINGLES VACCINES (1 of 2)] Future Scheduled 2023-04-12 COVID-19 VACCINE (5 - Me [facility] Test 01:03:27 Moderna series) [code = COVID-19 VACCINE (5 - Moderna series)] Future Scheduled 2023-04-12 INFLUENZA VACCINE (#1) [facility] Test 01:03:27 [code = INFLUENZA VACCINE (#1)] Encounters Start End Encounter Admission Attending Care Care Encounter Source Date/Time Date/Time Type Type Clinicians Facility Department ID 2022-02-24 Outpatient Díaz, Na STLMLC STLMLC [id number] 2 Common 15:27:01 [id number] [facility] 2021-09-08 Outpatient Díaz, Na STLMLC STLMLC [id number] 2 Common 14:10:03 [id number] [facility] 2021-09-08 Outpatient Díaz, Na STLMLC STLMLC [id number] 2 Common 14:09:36 [id number] [facility] 2021-09-08 Outpatient Díaz, Na STLMLC STLMLC [id number] 2 Common 13:48:51 [id number] [facility] 2021-09-08 Outpatient Díaz, Na STLMLC STLMLC [id number] 2 Common 13:34:14 [id number] [facility] 2021-09-08 Outpatient Ídaz, Na STLMLC STLMLC [id number] 2 Common 12:25:33 [id number] [facility] 2021-09-08 Outpatient Díaz, Na STLMLC STLMLC [id number] 2 Common 12:19:42 [id number] [facility] 2021-09-08 Outpatient Díaz, Na STLMLC STLMLC [id number] 2 Common 11:52:37 [id number] [facility] 2021-09-08 Outpatient Díaz, Na STLMLC STLMLC [id number] 2 Common 11:49:12 [id number] [facility] 2021-09-08 Outpatient [facility] [id number] 2 Common 11:28:23 [id number] [facility] 2021-09-08 Outpatient Lena Díaz [facility] [id number] 2 Common 11:24:48 [id number] [facility] 2023-10-27 2023-10-27 Outpatient MHIE MHIE [id number] Memoria 10:15:00 10:15:00 07 ashutosh Taylor 2023-06-30 2023-07-01 Outpatient MHIE MNA [id number] Memoria 16:00:00 05:59:59 Neurology 06 ashutosh Beltranann 2023-06-30 2023-06-30 Outpatient MUSA RinconSCHROBERT MHMISCHER [id number] 10:00:00 23:59:59 Ambar 06 Christopher 2023-06-30 2023-06-30 Outpatient MHIE MHIE [id number] Memoria 10:00:00 10:00:00 06 ashutosh Taylor 2023-06-30 2023-06-30 Outpatient MHIE MHIE [id number] Memoria 10:00:00 10:00:00 06 ashutosh Taylor 2023-04-19 2023-04-19 Outpatient S[facility] [id number] Tobi 15:59:06 15:59:06 [id number] Joie Mehta 2023-03-24 2023-03-25 Outpatient MHIE MNA [id number] Memoria 14:45:00 04:59:59 Neurology 05 ashutosh Beltranann 2023-03-24 2023-03-25 Outpatient MHIE MNA [id number] Memoria 14:45:00 04:59:59 Neurology 05 ashutosh [place] 2023-03-24 2023-03-24 Outpatient MUSA RinconSCHROBERT MISCHER [id number] 09:45:00 23:59:59 Ambar Phani Christopher 2023-03-24 2023-03-24 Outpatient MHIE MHIE [id number] Memoria 09:45:00 09:45:00 05 ashutosh Taylor 2023-02-01 2023-02-01 Outpatient [facility] [id number] Tobi 07:32:13 07:32:13 [id number] Joie Mehta 2023-01-13 2023-01-14 Outpatient MHIE MNA [id number] Memoria 14:45:00 04:59:59 Neurology 04 l [facility] 2023-01-13 2023-01-14 Outpatient MHIE MNA [id number] Memoria 14:45:00 04:59:59 Neurology 04 l [place] [facility] 2023-01-13 2023-01-13 Outpatient Sergey MISCHER MISCHER [id number] 09:45:00 23:59:59 Ambar 04 Christopher 2023-01-13 2023-01-13 Outpatient MHIE MHIE [id number] Memoria 09:45:00 09:45:00 04 ashutosh [facility] 2022-12-23 2022-12-24 Outpatient MHIE [facility] [id number] Memoria 14:39:00 04:59:00 [place] 00 [facility] 2022-12-23 2022-12-24 Outpatient MHIE [facility] [id number] Memoria 14:39:00 04:59:00 [place] 00 [facility] 2022-12-23 2022-12-23 Outpatient SERGEY, MHBL MHBL [id number] MHBL 09:39:00 23:59:00 AMBAR 2022-12-23 2022-12-23 Outpatient Sergey MHPL MHPL [id number] 09:39:00 23:59:00 Ambar 00 Christopher 2022-12-02 2022-12-02 Ambulatory MHIE MNA [id number] Memoria 15:15:00 15:15:00 Pre-Reg Neurology 03 ashutosh Sosa [place] 2022-12-02 2022-12-02 Ambulatory MHIE MNA [id number] Memoria 15:15:00 15:15:00 Pre-Reg Neurology 03 l Ian [place] 2022-12-02 2022-12-02 Outpatient MHIE MHIE [id number] Memoria 10:15:00 10:15:00 03 ashutosh [place] 2022-12-02 2022-12-02 Outpatient Sofiagasper, MHMISCHER MHMISCHER [id number] 10:15:00 10:15:00 Ambar 03 Christopher 2022-11-09 2022-11-10 Outpatient MHIE MNA [id number] Memoria 15:00:00 04:59:59 Neurology 02 ashutosh Taylor 2022-11-09 2022-11-10 Outpatient MHIE MNA [id number] Memoria 15:00:00 04:59:59 Neurology 02 ashutosh Taylor 2022-11-09 2022-11-09 Outpatient Sergey, MHMISCHER MHMISCHER [id number] 10:00:00 23:59:59 Ambar 02 Christopher 2022-11-09 2022-11-09 Outpatient MHIE MHIE [id number] Memoria 10:00:00 10:00:00 02 ashutosh Taylor 2022-10-14 2022-10-15 Outpatient MHIE MNA [id number] Memoria 17:00:00 05:59:59 Neurology 01 l Ian Taylor 2022-10-14 2022-10-15 Outpatient MHIE MNA [id number] Memoria 17:00:00 05:59:59 Neurology 01 ashutosh Taylor 2022-10-14 2022-10-14 Outpatient Sergey, MHMISCHER MHMISCHER [id number] 11:00:00 23:59:59 Ambar 01 Christopher 2022-10-14 2022-10-14 Outpatient MHIE MHIE [id number] Memoria 11:00:00 11:00:00 01 ashutosh Taylor 2022-10-04 2022-10-06 [facility] 1.2.840.1 [id number] Methodi 14:37:00 13:57:00 Encounter Meryl Escobar [id number] 6 52 Code[address] Davis 3.430.2.7 Hospita .3.116561 l .8 2022-10-04 2022-10-06 [facility] 1.2.840.1 10 [id number] Methodi 14:37:00 13:57:00 Encounter Meryl Escobar [id number] Codey Reid 3.430.2.7 Hospita .3.219491 l .8 2022-10-04 2022-10-04 Travel 1.2.840.1 [id number] [id number] Methodi 00:00:00 00:00:[address] 3.430.2.7 0.2.7.3.698 Ho spita .3.646172 084.8 l .8 2022-10-04 2022-10-04 Travel 1.2.840.1 1.2.640.048 [id number] Methodi 00:00:00 00:00:[address] 3.430.2.7 0.2.7.3.698 Ho spita .3.032341 084.8 l .8 2022-09-29 2022-09-29 Ambulatory MHIE MNA [id number] Memoria 16:00:00 16:00:00 Pre-Reg Neurology 00 l Copiah Brandon 2022-09-29 2022-09-29 Ambulatory MHIE MNA [id number] Memoria 16:00:00 16:00:00 Pre-Reg Neurology 00 l Copiah Brandon 2022-09-29 2022-09-29 Outpatient MHIE MHIE [id number] Memoria 10:00:00 10:00:00 00 ashutosh Brandon 2022-09-29 2022-09-29 Outpatient KYRA RinconTNSCHROBERT MHMISCHROBERT [id number] 10:00:00 10:00:00 Ambar White 2021-09-06 2021-09-06 (TEL) STLMLC STLMLC [id number] Co mmon 00:00:00 00:00:00 [facility] 2021-06-17 2021-06-17 (TEL) STLMLC STLMLC [id number] Co mmon 00:00:00 00:00:00 [facility] 2021-03-25 2021-03-25 OFFICE STLMLC STLMLC [id number] Co mmon 00:00:00 00:00:00 VISIT Spirit ESTAB PT - [facility]I LEVEL 2 [facility] 2021-03-22 2021-03-22 (TEL) STLMLC STLMLC [id number] Co mmon 00:00:00 00:00:00 Spirit CHI [facility] 2021-03-19 2021-03-19 OFFICE STLMLC STLMLC [id number] Co mmon 00:00:00 00:00:00 VISIT EST Spir it PT LEVEL 3 - [facility] 2021-01-25 2021-01-25 Outpatient Faustino ANDERSON, [facility] [id number] Univers 13:00:00 13:00:00 WILFRIDO alvares [facility] 2020-12-08 2020-12-08 OFFICE STLMLC STLMLC [id number] Co mmon 00:00:00 00:00:00 VISIT EST Spir it PT LEVEL 3 - [facility] 2020-09-15 2020-09-15 (INJ) STLMLC STLMLC [id number] Co mmon 00:00:00 00:00:00 Injection Spir it - [facility] 2020-09-14 2020-09-14 (TEL) STLMLC STLMLC [id number] Co mmon 00:00:00 00:00:00 [facility] 2020-09-08 2020-09-08 OFFICE STLMLC STLMLC [id number] Co mmon 00:00:00 00:00:00 VISIT Spirit ESTAB PT - [facility]I LEVEL 4 [facility] 2020-05-21 2020-05-21 Outpatient STLMLC STLMLC [id number] Common 00:00:00 00:00:00 [facility] 2020-02-20 2020-02-20 [facility] [id number] Common 10:00:00 10:00:[address] Family [facility] 2020-02-11 2020-02-11 Out[facility] [id number] Common 08:27:00 08:27:[address] [facility] 2020-02-11 2020-02-11 Telephone [facility] 1.2.528.766 [id number] Univers 00:00:00 00:00:00 Wilfrido Mckinney 350.1.13.10 [place] [id number] Ga dical nal 059 [facility] 2020-02-10 2020-02-10 Outpatient [facility] [id number] Common 15:00:00 15:00:[address] [facility] 2020-01-30 2020-01-30 Laboratory Pc, Adc Echo Room 1 - [facility] 1 .2.840.114 [id number] Univers 12:27:20 13:34:45 Only Manav, Wilfrido Mckinnye 350.1.13.10 [place] [id number] Ga dical nal 9 [facility] 2020-01-30 2020-01-30 Outpatient R [facility], [facility] [id number] Univers 13:00:00 13:00:00 WILFRIDO ity o f [facility] 2020-01-22 2020-01-22 Office [facility] 1.2.840.114 [id number] Univers 12:44:21 13:46:52 Visit Mellotamirarlyn Mckinney 350.1.13.10 [place] [id number] Ga dical nal 9 [facility] 2020-01-22 2020-01-22 Outpatient R [facility] [id number] Univers 13:00:00 13:00:00 WILFRIDO ity o f [facility] 2020-01-22 2020-01-22 Orders Doctor BORDEN 1.2.840.114 [id number] Univers 00:00:00 00:00:00 Only Unassigned, HARI 350.1.13.10 ity of [place] [facility] 4.2.7.2.686 Sumit as [phone] [place] [address] [place] 2020-01-10 2020-01-10 Out[facility] [id number] Common 15:13:00 15:13:[address] [facility] 2020-01-10 2020-01-10 Out[facility] [id number] Common 12:17:00 12:17:[address] [facility] 2019-07-31 2019-07-31 Out[facility] [id number] Common 09:00:00 09:00:[address] [facility] 2019-07-09 2019-07-09 Out[facility] [id number] Common 13:40:00 13:40:[address] [facility] 2019-04-23 2019-04-23 Office [facility], [facility] 1.2.840.114 [id number] Univers 13:12:25 14:02:05 Visit Wilfrido Mckinney 350.1.13.10 [place] 4.2.7.2.686 Manjit Ruiz [id number] Ga dical nal 9 [facility] 2019-04-11 2019-04-11 Out[facility] [id number] Common 15:00:00 15:00:[address] [facility] 2019-02-13 2019-02-13 Out[facility] [id number] Common 10:00:00 10:00:00 t Specialty/U Sp troy Specialty rology - [facility] /Urology Clinic [facility] 2019-01-09 2019-01-09 [facility] [id number] Common 11:20:00 11:20:[address] [facility] 2019-01-09 2019-01-09 Out[facility] [id number] Common 09:20:00 09:20:[address] [facility] 2018-10-15 2018-10-15 Out[facility] [id number] Common 10:50:00 10:50:[address] [facility] 2018-10-09 2018-10-09 Out[facility] [id number] Common 14:22:00 14:22:[address] [facility] 2018-10-09 2018-10-09 Out[facility] [id number] Common 11:45:00 11:45:[address] [facility] 2018-08-23 2018-08-23 Out[facility] [id number] Common 14:06:00 14:06:[address] [facility] 2018-08-23 2018-08-23 Out[facility] [id number] Common 08:03:00 08:03:[address] [facility] 2018-08-16 2018-08-16 Out[facility] [id number] Common 09:45:00 09:45:00 t Specialty/U Sp troy Specialty rology - [facility] /Urology Clinic [facility] 2018-08-15 2018-08-15 [facility] [id number] Common 10:12:00 10:12:[address] [facility] 2018-08-10 2018-08-10 Out[facility] [id number] Common 11:00:00 11:00:[address] [facility] 2018-07-04 2018-07-04 Out[facility] [id number] Common 11:30:00 11:30:[address] [facility] 2018-03-29 2018-03-29 Out[facility] [id number] Common 15:00:00 15:00:[address] [facility] Results Test Description Test Time Test Comments Results Result Comments Source RADRPT 2022-12-24 15:56:24 Test Item Value Reference Range Interpretation Comme nts RADRPT (test code = RADRPT) PROCEDURE INFORMATION: Exam: MR Head Wi thout Contrast Exam date and time: 12/23/2022 10:25 AM Age: 87 years old Clinical indication: Other amnesia; Additional info: /r41.3 other amnesia TECHNIQUE: Imaging protocol: Magnetic resonance imaging of the head without contrast. COMPARISON: No relevant prior studies available. FINDINGS: Brain: There is no acute cortical infarct, parenchymal hemorrhage or an intra-axial mass. 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 There is no midline shift there is significant underlying central/cortical atrophy of the supratentorial brain. There is periventricular and subcortical gliosis. Flow is seen in the 4th segments of both vertebral arteries dominant right, the basilar artery and intracranial carotid arteries. The cochlear, vestibule and 7th and 8th nerve fascicles are normal. Sellar and parasellar structures are normal. There is no cerebellar tonsillar ectopia.Cerebral ventricles: There is minimal ventriculomegaly. There is no midline shift present.Bones/joints: Unremarkable. Paranasal sinuses: Normal as visualized. No acute sinusitis. Mastoid air cells: Normal as visualized. No mastoid effusion. Orbital cavities: Unremarkable. Soft tissues: Unremarkable. IMPRESSION: There is no acute cortical infarct, parenchymal hemorrhage or an intra-axial mass. 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 There is no midline shift there is significant underlying central/cortical atrophy of the supratentorial brain. There is periventricular and subcortical gliosis. Dharmesh Galvan MD On 12/24/2022 10:55:06; [id number] [id number] 15:56:24 Test Item Value Reference Range Interpretation Comments RADRPT (test code PROCEDURE INFORMATION: = RADRPT) Exam: MR Head Without Contrast Exam date and time: 12/23/2022 10:25 AM Age: 87 years old Clinical indication: Other amnesia; Additional info: /r41.3 other amnesia TECHNIQUE: Imaging protocol: Magnetic resonance imaging of the head without contrast. COMPARISON: No relevant prior studies available. FINDINGS: Brain: There is no acute cortical infarct, parenchymal hemorrhage or an intra-axial mass. 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 There is no midline shift there is significant underlying central/cortical atrophy of the supratentorial brain. There is periventricular and subcortical gliosis. Flow is seen in the 4th segments of both vertebral arteries dominant right, the basilar artery and intracranial carotid arteries. The cochlear, vestibule and 7th and 8th nerve fascicles are normal. Sellar and parasellar structures are normal. There is no cerebellar tonsillar ectopia.Cerebral ventricles: There is minimal ventriculomegaly. There is no midline shift present.Bones/joints: Unremarkable. Paranasal sinuses: Normal as visualized. No acute sinusitis. Mastoid air cells: Normal as visualized. No mastoid effusion. Orbital cavities: Unremarkable. Soft tissues: Unremarkable. IMPRESSION: There is no acute cortical infarct, parenchymal hemorrhage or an intra-axial mass. 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 There is no midline shift there is significant underlying central/cortical atrophy of the supratentorial brain. There is periventricular and subcortical gliosis. Dharmesh Galvan MD On 12/24/2022 10:55:06; [id number] [facility] [id number] 15:56:24 Test Item Value Reference Range Interpretation Comments RADRPT (test code PROCEDURE INFORMATION: = RADRPT) Exam: MR Head Without Contrast Exam date and time: 12/23/2022 10:25 AM Age: 87 years old Clinical indication: Other amnesia; Additional info: /r41.3 other amnesia TECHNIQUE: Imaging protocol: Magnetic resonance imaging of the head without contrast. COMPARISON: No relevant prior studies available. FINDINGS: Brain: There is no acute cortical infarct, parenchymal hemorrhage or an intra-axial mass. 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 There is no midline shift there is significant underlying central/cortical atrophy of the supratentorial brain. There is periventricular and subcortical gliosis. Flow is seen in the 4th segments of both vertebral arteries dominant right, the basilar artery and intracranial carotid arteries. The cochlear, vestibule and 7th and 8th nerve fascicles are normal. Sellar and parasellar structures are normal. There is no cerebellar tonsillar ectopia.Cerebral ventricles: There is minimal ventriculomegaly. There is no midline shift present.Bones/joints: Unremarkable. Paranasal sinuses: Normal as visualized. No acute sinusitis. Mastoid air cells: Normal as visualized. No mastoid effusion. Orbital cavities: Unremarkable. Soft tissues: Unremarkable. IMPRESSION: There is no acute cortical infarct, parenchymal hemorrhage or an intra-axial mass. 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 There is no midline shift there is significant underlying central/cortical atrophy of the supratentorial brain. There is periventricular and subcortical gliosis. Dharmesh Galvan MD On 12/24/2022 10:55:06; [id number] [facility] [id number] 15:56:24 Test Item Value Reference Range Interpretation Comments RADRPT (test code PROCEDURE INFORMATION: = RADRPT) Exam: MR Head Without Contrast Exam date and time: 12/23/2022 10:25 AM Age: 87 years old Clinical indication: Other amnesia; Additional info: /r41.3 other amnesia TECHNIQUE: Imaging protocol: Magnetic resonance imaging of the head without contrast. COMPARISON: No relevant prior studies available. FINDINGS: Brain: There is no acute cortical infarct, parenchymal hemorrhage or an intra-axial mass. 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 There is no midline shift there is significant underlying central/cortical atrophy of the supratentorial brain. There is periventricular and subcortical gliosis. Flow is seen in the 4th segments of both vertebral arteries dominant right, the basilar artery and intracranial carotid arteries. The cochlear, vestibule and 7th and 8th nerve fascicles are normal. Sellar and parasellar structures are normal. There is no cerebellar tonsillar ectopia.Cerebral ventricles: There is minimal ventriculomegaly. There is no midline shift present.Bones/joints: Unremarkable. Paranasal sinuses: Normal as visualized. No acute sinusitis. Mastoid air cells: Normal as visualized. No mastoid effusion. Orbital cavities: Unremarkable. Soft tissues: Unremarkable. IMPRESSION: There is no acute cortical infarct, parenchymal hemorrhage or an intra-axial mass. 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 There is no midline shift there is significant underlying central/cortical atrophy of the supratentorial brain. There is periventricular and subcortical gliosis. Dharmesh Galvan MD On 12/24/2022 10:55:06; [id number] [facility]2023-02-23 19:28:47 Test Item Value Reference Range Interpretation Comments [facility]PL[facility] NAME ([facility] [place] code = 6415) SUPPLIER PHONE (test code = 6416) ORDER STATUS (test code Delivery Successful = 6417) DELIVERY NOTE (test code = 6419) REQUESTED DELIVEY DATE 10/06/2022 (test code = 6420) ITEM DESCRIPTION (test Wheeled Walker, Adult Qty: 1 code = 6423) EXPECTED DELIVERY DATE 10/06/2022 (test code = 6421) ACTUAL DELIVERY DATE 10/06/2022 (test code = 6422) [facility]2023-02-23 19:28:47 Test Item Value Reference Range Interpretation Comments SUPPLIER NAME ([facility] [place] code = 6415) SUPPLIER PHONE (test code = 6416) ORDER STATUS (test code Delivery Successful = 6417) DELIVERY NOTE (test code = 6419) REQUESTED DELIVEY DATE 10/06/2022 (test code = 6420) ITEM DESCRIPTION (test Wheeled Walker, Adult Qty: 1 code = 6423) EXPECTED DELIVERY DATE 10/06/2022 (test code = 6421) ACTUAL DELIVERY DATE 10/06/2022 (test code = 6422) [facility]2023-02-23 19:28:47 Test Item Value Reference Range Interpretation Comments SUPPLIER NAME (test [facility] [place] code = 6415) SUPPLIER PHONE (test code = 6416) ORDER STATUS (test code Delivery Successful = 6417) DELIVERY NOTE (test code = 6419) REQUESTED DELIVEY DATE 10/06/2022 (test code = 6420) ITEM DESCRIPTION (test Wheeled Walker, Adult Qty: 1 code = 6423) EXPECTED DELIVERY DATE 10/06/2022 (test code = 6421) ACTUAL DELIVERY DATE 10/06/2022 (test code = 6422) [facility] [id number] 19:28:47 Test Item Value Reference Range Interpretation Comments SUPPLIER NAME (test [facility] code = 6415) SUPPLIER PHONE (test code = 6416) ORDER STATUS (test code Delivery Successful = 6417) DELIVERY NOTE (test code = 6419) REQUESTED DELIVEY DATE 10/06/2022 (test code = 6420) ITEM DESCRIPTION (test Wheeled Doug, Adult Qty: 1 code = 6423) EXPECTED DELIVERY DATE 10/06/2022 (test code = 6421) ACTUAL DELIVERY DATE 10/06/2022 (test code = 6422) [address]2023-02-23 03:27:19 Test Item Value Reference Range Interpretation Comments Ventricular rate (test 71 code = 253) Atrial rate (test code 71 = 255) AZ interval (test code 182 = 266) QRSD interval (test 144 code = 260) QT interval (test code 422 = 264) QTC interval (test code 458 = 265) P axis 1 (test code = 65 267) QRS axis 1 (test code = 55 268) T wave axis (test code 50 = 270) EKG impression (test Sinus rhythm with code = 273) occasional premature ventricular complexes-Right bundle branch block- [address]2023-02-23 03:27:19 Test Item Value Reference Range Interpretation Comments Ventricular rate (test 71 code = 253) Atrial rate (test code 71 = 255) AZ interval (test code 182 = 266) QRSD interval (test 144 code = 260) QT interval (test code 422 = 264) QTC interval (test code 458 = 265) P axis 1 (test code = 65 267) QRS axis 1 (test code = 55 268) T wave axis (test code 50 = 270) EKG impression (test Sinus rhythm with code = 273) occasional premature ventricular complexes-Right bundle branch block- [address]2023-02-23 03:27:19 Test Item Value Reference Range Interpretation Comments Ventricular rate (test 71 code = 253) Atrial rate (test code 71 = 255) AZ interval (test code 182 = 266) QRSD interval (test 144 code = 260) QT interval (test code 422 = 264) QTC interval (test code 458 = 265) P axis 1 (test code = 65 267) QRS axis 1 (test code = 55 268) T wave axis (test code 50 = 270) EKG impression (test Sinus rhythm with code = 273) occasional premature ventricular complexes-Right bundle branch block- [facility] 12 [id number] 03:27:19 Test Item Value Reference Range Interpretation Comments Ventricular rate (test 71 code = 253) Atrial rate (test code 71 = 255) [place] interval (test code 182 = 266) QRSD interval (test 144 code = 260) QT interval (test code 422 = 264) QTC interval (test code 458 = 265) P axis 1 (test code = 65 267) QRS axis 1 (test code = 55 268) T wave axis (test code 50 = 270) EKG impression (test Sinus rhythm with code = 273) occasional premature ventricular complexes-Right bundle branch block- [facility]ch[facility] Complete, (w Contrast, Strain and 3D if needed)2022-10-05 22:42:00 Echocardiography Report [address]Name: MANAV GRACE.ID: [id number] .Date: 10/05/2022 Refer.MD: RIC DUNBAR MD Exam Time: 2:34:00 PM Study Type:Routine Echo Height: 71in Weight: 130lb BSA: 1.76 m2 Age: 6 1935,87Y Sex: MALE BP: 158/74 HR: 61 bpm Sonogrphr: Kay Mccurdy RDCS, RVTPat. Stat.:Inpatient Room: E2693D Study Status:Final Echo Event ID:[id number] Order ID: [id number] Reason for Study:Arrhythmias - Frequent VPCs or exercise-induced VPCsProcedures: 2D Echo, Colorflow Doppler, Portable, Intravenous LumasonContrast SUMMARY: Biventricular systolic function is normal.Diastolic dysfunction Grade I (Mild): Impaired relaxation with normalLV filling pressures.Estimated PA systolic pressure is 28 mmHg, assuming a mean RAP of 5mmHg. --FINDINGS: LV: LV size is normal. LV EF is normal. Overall wall motion is normal. Estimated EF is 60-64%.RV: RV size is normal. RV systolic function is normal.LA: LAsize is normal.RA: RA size is normal.AO: Aortic root diameter is normal in size. Ascending aorta diameter is normal.ANJALI: No pericardial effusion.AV: Aortic valve sclerosis. Mild aortic regurgitation.MV: No structural MV abnormalities noted. A trace of mitral regurgitation. PV: No structural PV abnormalities noted.TV: No structural TV abnormalities noted.[place]: Diastolic dysfunction Grade I (Mild): Impaired relaxation with normal LV filling pressures.Other: Estimated PA systolic pressure is 28 mmHg, assuming a mean RAP of 5 mmHg. MEASUREMENTS: 2DParasternal [place] Ao An 2.9 cm LVPWd 0.77 cm Ao Rtd 3.4 cm Index 1.9 cm/m2 LA Ds2.8 cm IVSd 0.77 cm RWT 0.3 LVIDd 5.1 cm Index 2.9 cm/m2 LV Mass 135 g (122-174) LVIDs 3.3 cm LVM Index 77 g/m2 LV%fs 36 % LVOT 2.3 cm LA Sng Plane LA Area 14 cm2 (8.8-23.4) LA Vol 31 ml Index 17 ml/m2 LA LngAx 4.9 cm RA Sng Plane RA Vol 41 ml Index 23 ml/m2 RA LngAx 5.2 cm RA Area 16 cm2 (8.3-19.5)LVOT LVOT Area 4.1 cm2 DOPPLERLVOT Stroke Vol & Cardiac Out LVOT TVI 23 cm HR 60 bpm LVOT LVOT SV 95 ml LVOT CO 5.7 l/min SVi 54 ml/m2 LVOT CI 3.2 l/m/m2TV Pressure Gradient TV PkVel 238 cm/s TV PG23 mmHg Signed 10/05/2022 04:42 [facility] [place] Brain Wo Contrast 2022-10-05 15:52:27PATIENT NAME: MANAV GRACEDOB: 1935; Age: 87 years y/o MaleMR: [id number] STUDY: MRI BRAIN WO CONTRAST 10/05/2022 9:00 AMORDERING PHYSICIAN: EDUARDO STOVALL CLINICAL INDICATION: Brain mass or lesion; COMPARISON: 10/04/[address] TECHNIQUE: Multiplanar noncontrast MRI of the brain is performed. FINDINGS: BRAIN PARENCHYMA: There is a 7 x 8 mm the right convexity extra-axial lesion in the frontoparietal junction. There is right convexity, 11 mm, simple subdural collection. There is a 2.5 mm left convexity subdural subdural collection. There is mild local sulcal effacement on the right. Frontal convexity simple however, there is no substantial leftward shift of midline or downward mass effect. There is moderate generalized volume loss and chronic microvascular ischemia.. Diffusion sequences are normal. The cerebellar tonsils are above foramen magnum. The pituitary gland is age-appropriate. CEREBELLOPONTINE REGIONS AND SKULL BASE: The cerebellopontine angles appear unremarkable. No skull base abnormality is seen. VENTRICLES/SULCI/CISTERNS: The ventricles are proportionate in size and co nfiguration. The basal cisterns are patent. VISUALIZED VESSELS: Major intracranial flow voids are preserved. ORBITS, VISUALIZED PARANASAL SINUSES AND MASTOIDS: Paranasal sinuses are clear. There is leftward deviation of nasal septum. The mastoid air cells are clear. No orbital pathology is seen. IMPRES DEDRA: 1.Simple appearing right greater than left convexity subdural collections, likely hemachromatosis2.There is mild local sulcal effacement along the right frontal convexity adjacent substantial midline shift or mass effectEvansville Psychiatric Children's CenterARS-CoV-2 (COVID-19) RNA [Presence] in Respiratory specimen by IQANA with probe [id number] 03:42:02 Test Item Value Reference Range Interpretation Comments SARS-CoV-2 (COVID-19) RNA Not detected [Presence] in Respiratory specimen by QIANA with probe detection (test code = 23179-0) Whether patient is employed in a Unknown healthcare setting (test code = 64821-5) Whether the patient has symptoms Unknown related to condition of interest (test code = 04154-6) Whether the patient was Unknown hospitalized for condition of interest (test code = 28838-9) Whether the patient was admitted Unknown to intensive care unit (ICU) for condition of interest (test code = 34725-4) Whether patient resides in a Unknown congregate care setting (test code = 47188-3) status (test code = Unknown 03206-8) Date and time of symptom onset Unknown (test code = 73757-4) [facility] Head Wo [id number] 22:01:22EXAMINATION: CT HEAD WO CONTRAST COMPARISON: None CLINICAL HISTORY cerebral edema. TECHNIQUE: Non-contrast CT scan of the head with thin-section contiguous transaxial images from the skull base to the vertex. CT scans are performed using radiation dose reduction techniques. Technical factors are evaluated and adjusted to ensure appropriate moderation of exposure. Automated dose management technology is applied to adjust radiation exposure while achieving a highly diagnostic quality image. FINDINGS: Nonenhanced emergency cranial CT was performed at approximately 1541 hours. The patient is obliquely positioned within the imaging gantry. There is widening of the extra-axial fluid spaces overlying theright frontal convexity. This may be on the basis of prominent right frontal lobe atrophy or due to a subdural hygroma. There is no significant mass effect. There is no midline shift or acute hemorrhage. There is no definite focal brain edema. IMPRESSION: Widening of the extra-axial fluid spaces overlying the right frontal convexity possibly due to right frontal atrophy or a chronic right frontal subdural hygroma, without mass effect. This finding could be better evaluated with MRI examination. Diffuse involutional changes without acute hemorrhage or edema [id number] Preliminary Interpretation - Not an [id number] 21:45:09 Test Item Value Reference Range Interpretation Comments LEO (test code = LEO) Eduardo Stovall MD 10/10/2022 9:40 [facility] ED Preliminary Interpretation - Not an OrderPerformed by: Eduardo Stovall MDAuthorized by: Eduardo Stovall MD ECG reviewed by ED Physician in the absence of a clother in: yes Previous ECG: Previous ECG: UnavailableInterpretat ion: Interpretation: abnormal Rate: ECG rate: 71 ECG rate assessment: normal Rhythm: Rhythm: sinus rhythm Ectopy: Ectopy: PVCs QRS: QRS axis: Normal QRS intervals: NormalConduction: Conduction: abnormal Abnormal conduction: complete RBBB ST segments: ST segments: NormalT waves: T waves: normal Lab Interpretation Abnormal (test code = 49659-5) [facility] ED Preliminary Interpretation - Not an [id number] 21:45:09 Test Item Value Reference Range Interpretation Comments LEO (test code = LEO) Eduardo Stovall MD 10/10/2022 9:40 [facility] ED Preliminary Interpretation - Not an OrderPerformed by: Eduardo Stovall MDAuthorized by: Eduardo Stovall MD ECG reviewed by ED Physician in the absence of a clother in: yes Previous ECG: Previous ECG: UnavailableInterpretat ion: Interpretation: abnormal Rate: ECG rate: 71 ECG rate assessment: normal Rhythm: Rhythm: sinus rhythm Ectopy: Ectopy: PVCs QRS: QRS axis: Normal QRS intervals: NormalConduction: Conduction: abnormal Abnormal conduction: complete RBBB ST segments: ST segments: NormalT waves: T waves: normal Lab Interpretation Abnormal (test code = 57924-8) [facility] ED Preliminary Interpretation - Not an [id number] 21:45:09 Test Item Value Reference Range Interpretation Comments LEO (test code = LEO) Eduardo Stovall MD 10/10/2022 9:40 [facility] ED Preliminary Interpretation - Not an OrderPerformed by: Eduardo Stovall MDAuthorized by: Eduardo Stovall MD ECG reviewed by ED Physician in the absence of a clother in: yes Previous ECG: Previous ECG: UnavailableInterpretat ion: Interpretation: abnormal Rate: ECG rate: 71 ECG rate assessment: normal Rhythm: Rhythm: sinus rhythm Ectopy: Ectopy: PVCs QRS: QRS axis: Normal QRS intervals: NormalConduction: Conduction: abnormal Abnormal conduction: complete RBBB ST segments: ST segments: NormalT waves: T waves: normal Lab Interpretation Abnormal (test code = 22577-5) [facility] ED Preliminary Interpretation - Not an [id number] 21:45:09 Test Item Value Reference Range Interpretation Comments LEO (test code = LEO) Eduardo Stovall MD 10/10/2022 9:40 [facility] ED Preliminary Interpretation - Not an OrderPerformed by: Eduardo Stovall MDAuthorized by: Eduardo Stovall MD ECG reviewed by ED Physician in the absence of a clother in: yes Previous ECG: Previous ECG: UnavailableInterpretat ion: Interpretation: abnormal Rate: ECG rate: 71 ECG rate assessment: normal Rhythm: Rhythm: sinus rhythm Ectopy: Ectopy: PVCs QRS: QRS axis: Normal QRS intervals: NormalConduction: Conduction: abnormal Abnormal conduction: complete RBBB ST segments: ST segments: NormalT waves: T waves: normal Lab Interpretation Abnormal (test code = 96183-2) [facility] Notes Date/Time Note Provider Source 2022-12-23 10:27:00 [id number]:27:[facility]am: MR Head Without Contrast Exam date and time: 12/23/2022 10:25 AM Age: 87 years old Clinical indication: Other amnesia; Additional info: /r41.3 other amnesia TECHNIQUE: Imaging protocol: Magnetic resonance imaging of the head without contrast. COMPARISON: No relevant prior studies available. FINDINGS: Brain: There is no acute cortical infarct, parenchymal hemorrhage or an intra-axial mass. 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 There is no midline shift there is significant underlying central/cortical atrophy of the supratentorial brain. There is periventricular and subcortical gliosis. Flow is seen in the 4th segments of both vertebral arteries dominant right, the basilar artery and intracranial carotid arteries. The cochlear, vestibule and 7th and 8th nerve fascicles are normal. Sellar and parasellar structures are normal. There is no cerebellar tonsillar ectopia.Cerebral ventricles: There is minimal ventriculomegaly. There is no midline shift present.Bones/joints: Unremarkable. Paranasal sinuses: Normal as visualized. No acute sinusitis. Mastoid air cells: Normal as visualized. No mastoid effusion. Orbital cavities: Unremarkable. Soft tissues: Unremarkable. IMPRESSION: There is no acute cortical infarct, parenchymal hemorrhage or an intra-axial mass. 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 There is no midline shift there is significant underlying central/cortical atrophy of the supratentorial brain. There is periventricular and subcortical gliosis. Dharmesh Galvan MD On 12/24/2022 10:55:06; [id number] ReportsLNDiagnostic ReportsTXTAVAvailable for patient [id number] ReportsLNMHIEMeMetropolitan Methodist HospitalJgqejwz0753-31-30P30:59:00 2022-12-23 10:27:00 [id number]:27:00PROCEDURE [facility] INFORMATION: Exam: MR Head Without Contrast Exam date and time: 12/23/2022 10:25 AM Age: 87 years old Clinical indication: Other amnesia; Additional info: /r41.3 other amnesia TECHNIQUE: Imaging protocol: Magnetic resonance imaging of the head without contrast. COMPARISON: No relevant prior studies available. FINDINGS: Brain: There is no acute cortical infarct, parenchymal hemorrhage or an intra-axial mass. 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 There is no midline shift there is significant underlying central/cortical atrophy of the supratentorial brain. There is periventricular and subcortical gliosis. Flow is seen in the 4th segments of both vertebral arteries dominant right, the basilar artery and intracranial carotid arteries. The cochlear, vestibule and 7th and 8th nerve fascicles are normal. Sellar and parasellar structures are normal. There is no cerebellar tonsillar ectopia.Cerebral ventricles: There is minimal ventriculomegaly. There is no midline shift present.Bones/joints: Unremarkable. Paranasal sinuses: Normal as visualized. No acute sinusitis. Mastoid air cells: Normal as visualized. No mastoid effusion. Orbital cavities: Unremarkable. Soft tissues: Unremarkable. IMPRESSION: There is no acute cortical infarct, parenchymal hemorrhage or an intra-axial mass. 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 There is no midline shift there is significant underlying central/cortical atrophy of the supratentorial brain. There is periventricular and subcortical gliosis. Dharmesh Galvan MD On 12/24/2022 10:55:06; [id number] ReportsLNDiagnostic ReportsTXTAVAvailable for patient [id number] ReportsLNIEEastland Memorial [id number]:59:00
--- NOTE | 2023-07-18 11:18 | RAD REPORT ---
EXAM DESCRIPTION: RAD - Hip Left 2 View - 07/18/2023 10:19 am CLINICAL HISTORY: PAIN COMPARISON: Elbow Left 3 View dated 07/18/2023 TECHNIQUE: Left hip, AP and frogleg views of the left hip. FINDINGS: Cortical step-off along the superior margin of the proximal aspect of the left superior pu bic ramus. There is no fracture or dislocation of the left hip. Mild degenerative changes at the femo roacetabular articulation. No acute or destructive bony process seen. IMPRESSION: Cortical step-off along the superior margin of the proximal aspect of the left superior pubic ramus. Please correlate with physical exam for suspicion of a fracture in this region.
--- NOTE | 2023-07-18 11:20 | RAD REPORT ---
EXAM DESCRIPTION: RAD - Elbow Left 3 View - 07/18/2023 10:19 am CLINICAL HISTORY: PAIN COMPARISON: Elbow Left 3 View dated 01/19/2022 TECHNIQUE: Left elbow, 3 views. FINDINGS: No fracture is identified. No elevated posterior fat pad to suggest an effusion. Pzri-ob-wyxzwjwt degenerative changes at the radiocapitellar articulation. There is no dislocation or periosteal reaction noted. No foreign body or other soft tissue abnormalit y. IMPRESSION: No acute osseus abnormality. Vovm-yw-djbdyica degenerative changes at the radiocapitella r articulation.
[2023-07-18] MEDS ORDERED: HYDROCODONE/APAP 5/325 MG TAB ONE (11:42)
--- NOTE | 2023-07-18 12:22 | RAD REPORT ---
EXAM DESCRIPTION: CT - Pelvis Wo Cont - 07/18/2023 11:58 am CLINICAL HISTORY: TRAUMA COMPARISON: Hip Left 2 View dated 07/18/2023 TECHNIQUE: Thin cut axial CT imaging of the pelvis was performed without IV contrast. Multiplanar re formats were generated and reviewed. All CT scans are performed using dose optimization technique as appropriate and may include automated exposure control or mA/KV adjustment according to patient size. FINDINGS: Mildly displaced fracture at the base of the left superior pubic ramus, corresponding to t he radiographic finding, with mild impaction. Mildly displaced and comminuted fractures at the juncti ons of the left superior and inferior pubic rami with the pubic bone, as well as another minimally di splaced fracture at the junction of the left inferior pubic ramus with the ischium. No dilated bowel loops or bowel wall thickening. Nonlocalized hematoma tracking along the space anter ior to the bladder and left pelvic sidewall. No free air, free fluid or inflammatory stranding. No he rnia, mass or bulky lymphadenopathy. The urinary bladder is without significant finding. Degenerative lower lumbar spine changes with right L5 pars interarticularis defect. . IMPRESSION: Mildly displaced fractures of the left superior and inferior pubic rami as above. Nonlocalized hematoma tracking along the left pelvic sidewall and extraperitoneal space anterior to t he bladder.
--- NOTE | 2023-07-18 13:28 | ER ---
Nurse's Notes [facility] Abdiel Name: Murray Grace Age: 88 yrs Sex: Male : 1935 Arrival Date: 07/18/2023 Time: 08:17 Bed 3 Private MD: Diagnosis: Mechanical fall;Minimally displaced fractures of left inferior and superior pubic ramus Presentation: 07/18 08:20 Chief complaint: EMS states: toned out to patients home for fall while taking trash out ld1 this morning. Pt C/O pain to left hip and left elbow. Denies hitting head. Not on blood thinners. Coronavirus screen: At this time, the client does not indicate any symptoms associated with coronavirus-19. Ebola Screen: No symptoms or risks identified at this time. Risk Assessment: Do you want to hurt yourself or someone else? Patient reports no desire to harm self or others. Onset of symptoms was July 18, 2023. 08:20 Method Of Arrival: EMS: [facility] ld1 08:20 Acuity: BRADY 3 ld1 10:02 Initial Sepsis Screen: Does the patient meet any 2 criteria? No. Patient's initial ph sepsis screen is negative. Does the patient have a suspected source of infection? No. Patient's initial sepsis screen is negative. Triage Assessment: 08:24 General: Appears in no apparent distress. comfortable, Behavior is calm, cooperative, ld1 appropriate for age. Pain: Complains of pain in left hip, left elbow and palmar aspect of left forearm Pain does not radiate. Pain currently is 10 out of 10 on a pain scale. Quality of pain is described as aching, throbbing, Pain began 1 hour ago. Is continuous. EENT: No signs and/or symptoms were reported regarding the EENT system. Neuro: Level of Consciousness is awake, alert, obeys commands, Oriented to person, place, time, situation. Cardiovascular: Capillary refill < 3 seconds Patient's skin is warm and dry. Respiratory: Airway is patent Respiratory effort is even, unlabored. GI: Abdomen is flat, non-distended. : No signs and/or symptoms were reported regarding the genitourinary system. Derm: No signs and/or symptoms reported regarding the dermatologic system. Musculoskeletal: Swelling present in left arm and left leg. Historical: - Allergies: :22 No Known Allergies; ld1 - PMHx: 08:22 None; ld1 - Immunization history:: Adult Immunizations up to date. - Social history:: Smoking status: Patient denies any tobacco usage or history of. Patient/guardian denies using alcohol. - Family history:: not pertinent. Screenin:24 [facility] ED Fall Risk Assessment (Adult) History of falling in the last 3 months, ph including since admission Yes- single mechanical fall (1 pt) Confusion or Disorientation No (0 pts) Intoxicated or Sedated No (0 pts) Impaired Gait No (0 pts) Mobility Assist Device Used No (0 pt) Altered Elimination No (0 pt) Score/Fall Risk Level 0 - 2 = Low Risk Oriented to surroundings, Maintained a safe environment, Provided non-skid footwear, Hourly rounding (assess needs \T\ fall precautionary measures) done. Abuse screen: Denies threats or abuse. Denies injuries from another. Nutritional screening: No deficits noted. Tuberculosis screening: No symptoms or risk factors identified. Assessment: 08:25 Reassessment: See triage assessment. ERP at bedside. ld1 09:36 Reassessment: Patient appears in no apparent distress at this time. Patient and/or tm6 family updated on plan of care and expected duration. Pain level reassessed. Patient is alert, oriented x 3, equal unlabored respirations, skin warm/dry/pink. 10:02 Reassessment: Patient appears in no apparent distress at this time. Patient and/or ph family updated on plan of care and expected duration. Pain level reassessed. Patient is alert, oriented x 3, equal unlabored respirations, skin warm/dry/pink. Xray at bedside. 10:51 Reassessment: Patient appears in no apparent distress at this time. Patient and/or tm6 family updated on plan of care and expected duration. Pain level reassessed. Patient is alert, oriented x 3, equal unlabored respirations, skin warm/dry/pink. 12:47 Reassessment: Patient appears in no apparent distress at this time. No changes from tm6 previously documented assessment. Patient and/or family updated on plan of care and expected duration. Pain level reassessed. Patient is alert, oriented x 3, equal unlabored respirations, skin warm/dry/pink. 13:45 Reassessment: Patient appears in no apparent distress at this time. No changes from ld1 previously documented assessment. Patient and/or family updated on plan of care and expected duration. Pain level reassessed. Patient is alert, oriented x 3, equal unlabored respirations, skin warm/dry/pink. 15:33 Reassessment: Pt placed in clean gown. Assisted using urinal. Pt denies concerns at ld1 this time. 16:50 Reassessment: Patient appears in no apparent distress at this time. No changes from ld1 previously documented assessment. Patient and/or family updated on plan of care and expected duration. Pain level reassessed. Patient is alert, oriented x 3, equal unlabored respirations, skin warm/dry/pink. Vital Signs: 08:24 BP 140 / 63; Pulse 64; Resp 18; Temp 97.9(TE); Pulse Ox 98% on R/A; Weight 63.5 kg; ld1 Height 5 ft. 7 in. ; Pain 10/10; 09:36 BP 138 / 68; Pulse 60; Pulse Ox 97% ; tm6 10:10 BP 148 / 70; Pulse 60; Resp 18; Pulse Ox 97% on R/A; ld1 10:51 BP 129 / 76; Pulse 58; Pulse Ox 100% on R/A; tm6 11:53 BP 126 / 68; Pulse 62; Resp 18; Pulse Ox 98% on R/A; ld1 12:47 BP 107 / 60; Pulse 63; Pulse Ox 97% on R/A; tm6 15:32 BP 141 / 96; Pulse 61; Resp 18; Pulse Ox 96% on R/A; ld1 16:50 BP 139 / 74; Pulse 65; Resp 18; Pulse Ox 98% on R/A; ld1 08:24 Body Mass Index 21.93 (63.50 kg, 170.18 cm) ld1 08:24 Pain Scale: Adult ld1 ED Course: 08:20 Patient arrived in ED. ld1 08:21 Mayur Chen MD is Attending Physician. rt 08:22 Triage completed. ld1 08:24 Uzma Castellano RN is Primary Nurse. ld1 08:24 Arm band placed on Patient placed in an exam room, on a stretcher, on pulse oximetry. ph 08:25 Patient has correct armband on for positive identification. Placed in gown. Bed in low ld1 position. Call light in reach. Side rails up X2. cardiac monitor on. Pulse ox on. NIBP on. Door closed. Noise minimized. Warm blanket given. 10:21 Hip Left 2 View XRAY In Process Unspecified. EDMS 10:21 Elbow Left 3 View XRAY In Process Unspecified. EDMS 11:59 CT Pelvis wo Cont In Process Unspecified. EDMS 13:25 Ba Roy MD is Hospitalizing Provider. rt 15:31 Warm blanket given. Cleaned of incontinence. Linen changed. ld1 16:50 No provider procedures requiring assistance completed. Patient admitted, IV remains in ld1 place. Administered Medications: 11:31 Drug: [place] PO 10 mg-325 mg 1 tabs PO once Route: PO; ph 13:33 Drug: Ondansetron IVP 4 mg IVP once; over 2 minutes Route: IVP; Site: right upper arm; ph 13:34 Drug: morphine IVP or IV 4 mg IVP once over 4 mins Route: IVP; Infused Over: 4 mins; ph Site: right upper arm; Medication: 08:25 VIS not applicable for this client. ld1 Outcome: 13:27 Decision to Hospitalize by Provider. rt 16:50 Admitted to Med/surg accompanied by tech, via stretcher, room 225, Report called to ldSamira Soria RN 16:50 Condition: stable 16:50 Instructed on the need for admit, 17:06 Patient left the ED. ld1 Signatures: Dispatcher [employer] Raina Escalante RN RN Uzma Castellano RN RN ld1 Mayur Chen MD MD rt Rafael Mora RN RN tm6
--- NOTE | 2023-07-18 13:28 | EDPHYS ---
Physician Documentation [facility] Name: Murray Grace Age: 88 yrs Sex: Male : 1935 Arrival Date: 07/18/2023 Time: 08:17 Bed 3 Private MD: ED Physician Mayur Chen HPI: 07/18 09:18 This 88 yrs old Male presents to ER via EMS with complaints of Hip Pain, Elbow rt Injury. 09:18 Patient presents to the ED with mechanical fall following trip. Denies loss of rt consciousness, hitting head, syncopal episode. States he landed onto his left elbow, left hip where he has pain. Denies pain to any other areas. Symptoms are mild in severity, aching nature, nonradiating, no other aggravating elevating factors.. Historical: - Allergies: 08: No Known Allergies; ld1 - PMHx: 08: None; ld1 - Immunization history:: Adult Immunizations up to date. - Social history:: Smoking status: Patient denies any tobacco usage or history of. Patient/guardian denies using alcohol. - Family history:: not pertinent. ROS: 09:18 Constitutional: Negative for fever, chills, and weight loss, Neck: Negative for injury, rt pain, and swelling, Cardiovascular: Negative for chest pain, palpitations, and edema, Respiratory: Negative for shortness of breath, cough, wheezing, and pleuritic chest pain, Abdomen/GI: Negative for abdominal pain, nausea, vomiting, diarrhea, and constipation, Skin: Negative for injury, rash, and discoloration, Neuro: Negative for headache, weakness, numbness, tingling, and seizure, Psych: Negative for depression, anxiety, suicide ideation, homicidal ideation, and hallucinations, 09:18 MS/extremity: Positive for contusion, pain, Exam: 09:18 Constitutional: This is a well developed, well nourished patient who is awake, alert, rt and in no acute distress. Head/Face: Normocephalic, atraumatic. Neck: Trachea midline, no thyromegaly or masses palpated, and no cervical lymphadenopathy. Supple, full range of motion without nuchal rigidity, or vertebral point tenderness. No Meningismus. Chest/axilla: Normal chest wall appearance and motion. Nontender with no deformity. No lesions are appreciated. Cardiovascular: Regular rate and rhythm with a normal S1 and S2. No gallops, murmurs, or rubs. Normal PMI, no JVD. No pulse deficits. Respiratory: Lungs have equal breath sounds bilaterally, clear to auscultation and percussion. No rales, rhonchi or wheezes noted. No increased work of breathing, no retractions or nasal flaring. Abdomen/GI: Soft, non-tender, with normal bowel sounds. No distension or tympany. No guarding or rebound. No evidence of tenderness throughout. Neuro: Awake and alert, GCS 15, oriented to person, place, time, and situation. Cranial nerves II-XII grossly intact. Motor strength 5/5 in all extremities. Sensory grossly intact. Cerebellar exam normal. Normal gait. Psych: Awake, alert, with orientation to person, place and time. Behavior, mood, and affect are within normal limits. 09:18 Musculoskeletal/extremity: Minimal tenderness to the left elbow, left hip, no deformity, contusion noted, pulses, motor, sensation intact. Vital Signs: 08:24 BP 140 / 63; Pulse 64; Resp 18; Temp 97.9(TE); Pulse Ox 98% on R/A; Weight 63.5 kg; ld1 Height 5 ft. 7 in. ; Pain 10/10; 09:36 BP 138 / 68; Pulse 60; Pulse Ox 97% ; tm6 10:10 BP 148 / 70; Pulse 60; Resp 18; Pulse Ox 97% on R/A; ld1 10:51 BP 129 / 76; Pulse 58; Pulse Ox 100% on R/A; tm6 11:53 BP 126 / 68; Pulse 62; Resp 18; Pulse Ox 98% on R/A; ld1 12:47 BP 107 / 60; Pulse 63; Pulse Ox 97% on R/A; tm6 15:32 BP 141 / 96; Pulse 61; Resp 18; Pulse Ox 96% on R/A; ld1 16:50 BP 139 / 74; Pulse 65; Resp 18; Pulse Ox 98% on R/A; ld1 08:24 Body Mass Index 21.93 (63.50 kg, 170.18 cm) ld1 08:24 Pain Scale: Adult ld1 MDM: 08:21 Patient medically screened. rt 13:43 Differential diagnosis: Fracture, contusion. Data reviewed: vital signs, nurses notes, rt EMS record. Consideration of Admission/Observation Patient was admitted/placed on observation. Management of patient was discussed with the following: Laboratory Animal Care Veterinarian: Discussed with orthopedist on-call, states is nonoperative injury. I considered the following discharge prescriptions or medication management in the emergency department Medications were administered in the Emergency Department. See MAR. Independent interpretation of the following test(s) in the Emergency Department X-Ray: My interpretation is Pubic ramus fracture seen on interpretation of x-ray images. Counseling: I had a detailed discussion with the patient and/or guardian regarding the historical points, exam findings, and any diagnostic results supporting the discharge/admit diagnosis, radiology results, the need for further work-up and treatment in the hospital. 07/18 13:06 Order name: CBC with Diff; Complete Time: 16:49 rt 07/18 13:06 Order name: CMP; Complete Time: 16:49 rt 07/18 13:37 Order name: CBC Smear Scan; Complete Time: 16:49 EDMS 07/18 14:01 Order name: Urinalysis w/ reflexes EDMS 07/18 14:01 Order name: Basic Metabolic Panel EDMS 07/18 14:01 Order name: Basic Metabolic Panel EDMS 07/18 14:01 Order name: Basic Metabolic Panel EDMS 07/18 14:01 Order name: Basic Metabolic Panel EDMS 07/18 14:01 Order name: CBC with Automated Diff EDMS 07/18 14:01 Order name: CBC with Automated Diff EDMS 07/18 14:01 Order name: CBC with Automated Diff EDMS 07/18 14:01 Order name: CBC with Automated Diff EDMS 07/18 14:01 Order name: Magnesium EDMS 07/18 14:01 Order name: Magnesium EDMS 07/18 14:01 Order name: Magnesium EDMS 07/18 14:01 Order name: Magnesium EDMS 07/18 14:01 Order name: Phosphorus EDMS 07/18 14:01 Order name: Phosphorus EDMS 07/18 14:01 Order name: Phosphorus EDMS 07/18 14:01 Order name: Phosphorus EDMS 07/18 08:28 Order name: Elbow Left 3 View XRAY; Complete Time: 11:25 rt 07/18 08:28 Order name: Hip Left 2 View XRAY; Complete Time: 11:25 rt 07/18 11:33 Order name: CT Pelvis wo Cont; Complete Time: 12:37 rt Administered Medications: 11:31 Drug: [place] PO 10 mg-325 mg 1 tabs PO once Route: PO; ph 13:33 Drug: Ondansetron IVP 4 mg IVP once; over 2 minutes Route: IVP; Site: right upper arm; ph 13:34 Drug: morphine IVP or IV 4 mg IVP once over 4 mins Route: IVP; Infused Over: 4 mins; ph Site: right upper arm; Disposition Summary: 07/18/23 13:27 Hospitalization Ordered Notes: Hospitalization Status: Observation rt Provider: Ba Roy rt Location: Telemetry/MedSurg (observation) rt Condition: Stable rt Problem: new rt Symptoms: have improved rt Bed/Room Type: Standard rt Room Assignment: 222(07/18/23 15:47) bd Diagnosis - Mechanical fall rt - Minimally displaced fractures of left inferior and superior pubic ramus rt Forms: - Medication Reconciliation Form rt - SBAR form rt - Leadership Thank You Letter rt Signatures: Dispatcher [employer] Dayan Mcrae Patricia, RN RN ph Uzma Castellano RN RN ld1 Mayur Chen MD MD rt Corrections: (The following items were deleted from the chart) 15:47 13:27 rt bd
[2023-07-18] MEDS ORDERED: MORPHINE 4 MG/ML SYR ONE (13:31)
[2023-07-18] MEDS ORDERED: ONDANSETRON 4 MG/2 ML VIAL ONE (13:31)
[2023-07-18 13:32] LABS: Absolute Lymphocytes (CBC) 0.5 K/uL (0.7-4.9); Hematocrit 28.3 % (39.6-49.0); Lymphocytes % 7.4 % (15.3-44.8); MCV 100.2 fL (80-100); MPV 8.5 fL (7.6-11.3); Platelets 131 thou/uL (152-406); RBC Red Blood Cell Count 2.82 M/uL (4.33-5.43)
[2023-07-18] MEDS ORDERED: MAGNESIUM HYDROXIDE 8% 30 ML PO PRN (13:57)
[2023-07-18] MEDS ORDERED: ACETAMINOPHEN 500 MG TAB PO PRN (13:57)
[2023-07-18 13:58] LABS: Albumin 3.2 g/dL (3.4-5.0); Bilirubin Total 1.1 mg/dL (0.2-1.0); Potassium 4.5 mEq/L (3.5-5.1); Protein, Total 6.6 g/dL (6.4-8.2)
--- NOTE | 2023-07-18 14:10 | P.HP ---
Certification for Inpatient With expected LOS: <2 Midnights Patient will require the following post-hospital care: None Practitioner: I am a practitioner with admitting privileges, knowledge of patient current condition, hospital course, and medical plan of care. Services: Services provided to patient in accordance with Admission requirements found in Title 42 Section 412.3 of the Code of Federal Regulations <Fallon Montoya - Last Filed: 07/18/23 14:27> Patient History Date of Service: 07/18/23 Reason for admission: fall, cortical step off Lt.pubic ramus History of Present Illness: 88-year-old male patient presented to the emergency room with the complaints of hip pain. Patient patient's daughter reported that patient had a fall while moving the trash in the driveway this morning. Patient denies loss of consciousness, hitting of head, syncopal episode. States he landed to his left elbow left hip where he has pain now. Patient reports pain 7 out of 10 now. Denies any pain to any other ADLs, moving all the extremities spontaneously. Patient denies chest pain, chest discomfort, or palpitation. Patient denies abdominal pain, nausea vomiting or diarrhea. Patient denies fever or chills. ED course Blood pressure 140/63, pulse of 64, respiration 18, temperature 97.9, pulse ox 98% on room air. Patient was given [place] 10 mg tablet p.o. x1. Initial labs showing low hemoglobin 9.5/2 hematocrit 28.3, metabolic panel is normal. X-ray left hip 2 view shows cortical step-off along the superior margin of the proximal aspect of the left superior pubic ramus. Admitting the patient with a diagnosis of mechanical fall, minimally displaced fracture of left inferior and superior pubic ramus. Home medications list reviewed: Yes - Past Medical/Surgical History Diabetic: No -: BPH -: Hypotension -: Renal Insufficiency -: Prostate Surgery-01/29/15 -: Cholecystectomy 2011 -: hernia Repair - Social History Alcohol use: No CD- Drugs: No Caffeine use: Yes <Fallon Montoya - Last Filed: 07/18/23 14:27> Date of Service: 07/18/23 <Ba Roy - Last Filed: 07/18/23 18:21> Allergies No Known Drug Allergies Allergy (Verified 02/02/15 10:40) Unknown Home Medications: Aspirin [Aspirin EC 81 MG] 81 mg PO DAILY 01/06/15 Finasteride [Proscar*] 5 mg PO DAILY 01/06/15 Docusate Sodium [Stool Softener] 240 mg PO BID PRN 02/02/15 Montelukast [Singulair*] 10 mg PO DAILY 02/02/15 Tramadol HCl 50 mg PO Q6H PRN 02/02/15 Review of Systems 10-point ROS is otherwise unremarkable <Fallon Montoya - Last Filed: 07/18/23 14:27> Physical Examination - Physical Exam General: Alert, In no apparent distress HEENT: Atraumatic, Normocephalic Neck: Supple, 2+ carotid pulse no bruit Respiratory: Clear to auscultation bilaterally, Normal air movement Cardiovascular: No edema, Regular rate/rhythm, Normal S1 S2 Capillary refill: <2 Seconds Gastrointestinal: Normal bowel sounds, Soft and benign Musculoskeletal: No clubbing, No swelling, Other (Severe pain in the hip area and consistent with the movement) Integumentary: No rashes, No breakdown, No significant lesion Neurological: Normal speech, Normal tone, Normal affect - Studies Laboratory Data (last 24 hrs) 07/18/23 07/18/23 13:22 13:22 WBC 6.70 Hgb 9.5 L Hct 28.3 L Plt Count 131 L Sodium 139 Potassium 4.5 BUN 22 H Creatinine 0.75 Glucose 113 H Total Bilirubin 1.1 H AST 37 ALT 46 Alkaline Phosphatase 86 <Fallon Montoya - Last Filed: 07/18/23 14:27> - Studies Laboratory Data (last 24 hrs) 07/18/23 07/18/23 13:22 13:22 WBC 6.70 Hgb 9.5 L Hct 28.3 L Plt Count 131 L Sodium 139 Potassium 4.5 BUN 22 H Creatinine 0.75 Glucose 113 H Total Bilirubin 1.1 H AST 37 ALT 46 Alkaline Phosphatase 86 <Ba Roy - Last Filed: 07/18/23 18:21> Assessment and Plan - Problems (Diagnosis) (1) Fall Current Visit: Yes Status: Acute Qualifiers: Encounter type: initial encounter Qualified Code(s): W19.XXXA - Unspecified fall, initial encounter (2) Fracture of left inferior pubic ramus Current Visit: Yes Status: Acute Qualifiers: Encounter type: initial encounter Fracture type: closed Qualified Code(s): S32.592A - Other specified fracture of left pubis, initial encounter for closed fracture (3) Anemia Current Visit: Yes Status: Acute Qualifiers: Iron deficiency anemia type: unspecified iron deficiency - Plan - Problems (Diagnosis) (1) Fall Current Visit: Yes Status: Acute (2) Fracture of left inferior pubic ramus Current Visit: Yes Status: Acute * Patient was brought to the hospital due to the pain on the left hip and left elbow after fall in the driveway today * Left hip radiology shows cortical step-off along the superior margin of the proximal aspect of left superior pubic ramus * Admitted to the hospital * Consulted to Ortho surgeon Dr. Heart * IV hydration, analgesics * Will monitor the vital signs * Fall precautions (3) Anemia unknown if chronic Current Visit: Yes Status: Acute * Patient's initial CBC shows a hemoglobin of 9.5 over hematocrit 28.3, not clear if chronic. * Will order iron studies and continue to monitor CODE STATUSfull code DVT prophylaxisSCDs and Lovenox Dietregular diet Discharge Plan: Home Plan to discharge in: 24 Hours - Advance Directives Does patient have a Living Will: No Does patient have a Durable POA for Healthcare: No - Code Status/Comfort Care Code Status Assessed: Yes (full code) Code Status: Full Code Physician Review: Patient Assessed, Agree with Above Assessment and Plan Critical Care: No Time Spent Managing Pts Care (In Minutes): 55 (minutes) <Fallon Montoya - Last Filed: 07/18/23 14:27> Physician Review Additional Text: Pt seen and examined. I agree withe note by the NATURAL GAS FIELD PROCESSING SUPERVISOR. Pt had a fall outside his house. His neighbor witnessed the fall. Pt did not hit his head on the floor. On admission, CT pelvis showed minimally displaced superior and inferior pubic rami fracture on the left. It hurts to move around. A/P: Left pubic rami fracture: Not a surgical candidate. Will continue prn pain med. Ortho is following. Will consult PT. Anemia; Hgb is 9.5. Will monitor H/H. DVT ppx: SCD <Ba Roy - Last Filed: 07/18/23 18:21>
[2023-07-18 14:44] LABS: White Blood Cell Scan OK (OK)
[2023-07-18 14:45] LABS: Blood Morphology Comment NOT SEEN (NOT SEEN); Platelet Estimate ADEQ
[2023-07-18] MEDS: ENOXAPARIN 40 MG/0.4 ML SQ SCH (15:00)
[2023-07-18 17:53] VITALS: BMI 21.9
[2023-07-18] MEDS: NA CHLORIDE 0.9% 1,000 ML IV SCH (18:11)
[2023-07-18] MEDS: MORPHINE 2 MG/ML SYR IV PRN (18:11)
[2023-07-18 19:35] LABS: Specific Gravity 1.024 (1.005-1.030); Urine Bacteria None Seen /HPF (<20); Urine Bilirubin NEGATIVE (Negative); Urine Blood Negative (Negative); Urine Clarity Clear (Clear); Urine Color Light-Yellow (Yellow); Urine Crystals Unidentified Few /HPF (None Seen); Urine Glucose NEGATIVE (Negative); Urine Protein TRACE (Negative); Urine Urobilinogen 1+ (Normal)
[2023-07-18] MEDS: MELATONIN 5 MG TABLET PO PRN (21:42)
[2023-07-18] MEDS ORDERED: HYDRALAZINE HCL 20 MG/ML VIAL IV PRN (23:41)
[2023-07-19 08:44] LABS: Absolute Lymphocytes (CBC) 0.4 K/uL (0.7-4.9); Hematocrit 27.5 % (39.6-49.0); Lymphocytes % 5.6 % (15.3-44.8); MCV 100.3 fL (80-100); MPV 8.7 fL (7.6-11.3); Platelets 117 thou/uL (152-406); RBC Red Blood Cell Count 2.74 M/uL (4.33-5.43)
[2023-07-19 09:01] LABS: Magnesium 1.8 mg/dL (1.6-2.4); Phosphorus 2.8 mg/dL (2.5-4.9); Potassium 4.1 mEq/L (3.5-5.1)
[2023-07-19 09:34] LABS: White Blood Cell Scan OK (OK)
[2023-07-19 09:35] LABS: Anisocytosis SLIGHT; Blood Morphology Comment NOTED (NOT SEEN); Macrocytosis SLIGHT; Platelet Estimate DECR
--- NOTE | 2023-07-19 09:35 | P.PN ---
Subjective Date of Service: 07/19/23 Chief Complaint: fall, cortical step off Lt.pubic ramus Subjective: No new changes, Improving, Doing well Patient is alert and oriented x3 Vital signs stable No acute distress noticed Patient reported mild fever and discomfort on the left hip Discussed with the nursing staff Review of Systems 10-point ROS is otherwise unremarkable Physical Examination - Vital Signs Temperature: 98.2 F Blood Pressure: 129/50 Pulse: 63 Respirations: 16 Pulse Ox (%): 95 - Physical Exam General: Alert, Oriented x3 HEENT: Atraumatic, Normocephalic Neck: Supple, 2+ carotid pulse no bruit Respiratory: Clear to auscultation bilaterally, Normal air movement Cardiovascular: No edema, Normal pulses Capillary refill: <2 Seconds Gastrointestinal: Normal bowel sounds, Soft and benign Musculoskeletal: No clubbing, No swelling Neurological: Normal speech, Normal affect - Studies Laboratory Data (last 24 hrs) 07/18/23 07/18/23 13:22 13:22 WBC 6.70 Hgb 9.5 L Hct 28.3 L Plt Count 131 L Sodium 139 Potassium 4.5 BUN 22 H Creatinine 0.75 Glucose 113 H Total Bilirubin 1.1 H AST 37 ALT 46 Alkaline Phosphatase 86 Assessment And Plan - Current Problems (Diagnosis) (1) Fall Current Visit: Yes Status: Acute Qualifiers: Encounter type: initial encounter Qualified Code(s): W19.XXXA - Unspecified fall, initial encounter (2) Fracture of left inferior pubic ramus Current Visit: Yes Status: Acute Qualifiers: Encounter type: initial encounter Fracture type: closed Qualified Code(s): S32.592A - Other specified fracture of left pubis, initial encounter for closed fracture (3) Anemia Current Visit: Yes Status: Acute Qualifiers: Iron deficiency anemia type: unspecified iron deficiency - Plan - Problems (Diagnosis) (1) Fall Current Visit: Yes Status: Acute (2) Fracture of left inferior pubic ramus Current Visit: Yes Status: Acute * Continued to have pain on the left hip and left elbow after fall on 07/18/2023 * Left hip radiology shows cortical step-off along the superior margin of the proximal aspect of left superior pubic ramus * Continue pain management as needed * Waiting for Ortho surgeon Dr. Heart recommendations * Continue IV hydration, analgesics * Will monitor the vital signs * Fall precautions (3) Anemia unknown if chronic Current Visit: Yes Status: Acute * Patient's initial CBC shows a hemoglobin of 9.3 over hematocrit 25.33, not clear if chronic. Not much different from yesterday * Will to monitor CODE STATUSfull code DVT prophylaxisSCDs and Lovenox Dietregular diet Discharge Plan: Home Plan to discharge in: 24 Hours - Code Status/Comfort Care Code Status Assessed: Yes (Full code) Code Status: Full Code Physician Review: Patient Assessed, Agree with Above Assessment and Plan Critical Care: No Time Spent Managing PTS Care (In Minutes): 35 (Minutes)
[2023-07-19] MEDS: ENOXAPARIN 40 MG/0.4 ML SQ SCH (09:48)
[2023-07-19] MEDS: MORPHINE 2 MG/ML SYR IV PRN (09:48)
[2023-07-19] MEDS: NA CHLORIDE 0.9% 1,000 ML IV SCH (09:49)
--- NOTE | 2023-07-19 18:10 | CON ---
Date of Consultation: 07/19/2023 Reason For Consultation: Left hip pain. History Of Present Illness: Murray is an 88-year-old male who presented to the emergency room after sustaining a fall with subsequent pain to the left hip. He had x-rays and a CAT scan in the emergency room, which demonstrated a left- sided pubic rami fracture. He was admitted to the floor for pain control, mobilization, and physical therapy. He denies any other musculoskeletal complaints at this time. Review of Systems: As above, otherwise negative. Past Medical History: Includes BPH, renal insufficiency. Past Surgical History: Includes prostate surgery, cholecystectomy, and hernia repair. Social History: Denies tobacco, alcohol, or drug use. Allergies: NO KNOWN DRUG ALLERGIES. Home Medications: Aspirin, finasteride, docusate sodium, montelukast, tramadol. Physical Examination: General: No apparent distress. HEENT: He is normocephalic, atraumatic. Neck: Supple. Cardiovascular: Brisk cap refill to all digits. Chest: Nonlabored breathing. Abdomen: Nondistended. Psychiatric: Responsive to exam. Musculoskeletal: Left lower extremity: No pain with internal or external rotation of the hip. Some pain with abduction of the left hip. Right lower extremity: Functional range of motion without pain. No gross deformities. No obvious dislocations. Bilateral upper extremities: Functional range of motion without pain. No gross deformities. No obvious dislocations. Diagnostic Studies: X-ray and CT scan demonstrate left sided pubic rami fractures. Assessment And Plan: Mr. Grace is an 88-year-old male with a left-sided pubic rami fracture. We will proceed with nonoperative management and closed treatment. The patient may be weightbearing as tolerated with physical therapy. No surgical intervention is indicated at this time. The patient may follow up in my clinic in 2 weeks for reevaluation and x-rays of his pelvis. CV/MODL Voice ID: [id number] Report ID: [id number] [place]
[2023-07-20 05:52] LABS: Absolute Lymphocytes (CBC) 0.4 K/uL (0.7-4.9); Hematocrit 25.8 % (39.6-49.0); Lymphocytes % 5.1 % (15.3-44.8); MCV 99.7 fL (80-100); MPV 8.8 fL (7.6-11.3); Platelets 99 thou/uL (152-406); RBC Red Blood Cell Count 2.59 M/uL (4.33-5.43)
[2023-07-20 06:32] LABS: Magnesium 2.1 mg/dL (1.6-2.4); Phosphorus 2.5 mg/dL (2.5-4.9); Potassium 3.7 mEq/L (3.5-5.1)
[2023-07-20] MEDS: NA CHLORIDE 0.9% 1,000 ML IV SCH (06:54)
[2023-07-20 07:25] LABS: White Blood Cell Scan OK (OK)
[2023-07-20 07:26] LABS: Blood Morphology Comment NOT SEEN (NOT SEEN); Platelet Estimate DECR
[2023-07-20] MEDS ORDERED: POTASSIUM CL SA 10 MEQ TAB PO ONE (08:00)
[2023-07-20] MEDS ORDERED: ENOXAPARIN 40 MG/0.4 ML SQ SCH (09:00)
--- NOTE | 2023-07-20 09:40 | P.PN ---
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 as he did not sleep last night Also reports that patient is having hallucinations on and off Vital signs stable No acute distress noticed Patient reported mild pain and discomfort on the left hip Discussed with the nursing staff <Fallon Montoya - Last Filed: 07/20/23 16:05> Date of Service: 07/20/23 <Ba Roy - Last Filed: 07/20/23 17:35> Review of Systems 10-point ROS is otherwise unremarkable <Fallon Montoya - Last Filed: 07/20/23 16:05> Physical Examination - Vital Signs Temperature: 98.5 F Blood Pressure: 129/57 Pulse: 67 Respirations: 16 Pulse Ox (%): 96 - Physical Exam General: Oriented x2, Confused, Other (Drowsy) HEENT: Atraumatic, Normocephalic Neck: Supple Respiratory: Clear to auscultation bilaterally, Normal air movement Cardiovascular: No edema, Normal pulses Capillary refill: <2 Seconds Gastrointestinal: Normal bowel sounds, Soft and benign Integumentary: No rashes, No breakdown Neurological: Normal tone, Normal affect <Fallon Montoya - Last Filed: 07/20/23 16:05> Assessment And Plan - Current Problems (Diagnosis) (1) Fall Current Visit: Yes Status: Acute Qualifiers: Encounter type: initial encounter Qualified Code(s): W19.XXXA - Unspecified fall, initial encounter (2) Fracture of left inferior pubic ramus Current Visit: Yes Status: Acute Qualifiers: Encounter type: initial encounter Fracture type: closed Qualified Code(s ): S32.592A - Other specified fracture of left pubis, initial encounter for closed fracture (3) Anemia Current Visit: Yes Status: Acute Qualifiers: Iron deficiency anemia type: unspecified iron deficiency (4) Hallucination Current Visit: Yes Status: Acute (5) Confusion Current Visit: Yes Status: Acute - Plan - Problems (Diagnosis) (1) Fall Current Visit: Yes Status: Acute (2) Fracture of left inferior pubic ramus Current Visit: Yes Status: Acute * Continued to have pain on the left hip and left elbow after fall on 07/18/2023 * Left hip radiology shows cortical step-off along the superior margin of the proximal aspect of left superior pubic ramus * Continue pain management as needed * Waiting for Ortho surgeon Dr. Heart recommendations * Continue IV hydration, analgesics * Will monitor the vital signs * Fall precautions * nonoperative management and closed treatment. PT weightbearing as tolerated with physical therapy (3) Anemia unknown if chronic (4) hallucinations, confusion Current Visit: Yes Status: Acute * Patient's initial CBC shows a hemoglobin of 9.3 over hematocrit 25.33, not clear if chronic. Not much different from yesterday * Will to monitor (4) hallucinations, confusion * Family reports patient has been having some hallucination and episodes of confusion * Patient responding appropriately clear to the commands moving all extremities but very sleepy * Will discontinue morphine at this time and continue to monitor * Swallow eval ordered as patient is noted to coughing while drinking * Aspiration precaution CODE STATUSfull code DVT prophylaxisSCDs and Lovenox Dietregular diet Discharge Plan: Home Plan to discharge in: 24 Hours - Code Status/Comfort Care Code Status Assessed: Yes (Full code) Code Status: Full Code Comfort Measures: Palliative Care Physician Review: Patient Assessed, Agree with Above Assessment and Plan Critical Care: No Time Spent Managing PTS Care (In Minutes): 35 (Minutes) <Fallon Montoya - Last Filed: 07/20/23 16:05> Physician Review Additional Text: 07/20/23 17:35 Pt seen and examined. I agree with the note by the WOOD POLE TREATER. Not a surgical candidate. Pt is waiting for Physical therapy eval. <Ba Roy - Last Filed: 07/20/23 17:35>
[2023-07-20] MEDS ORDERED: ACETAMINOPHEN 500 MG TAB PO PRN (11:25)
[2023-07-20] MEDS ORDERED: MAGNESIUM HYDROXIDE 8% 30 ML PO PRN (11:26)
[2023-07-20] MEDS ORDERED: HYDRALAZINE HCL 20 MG/ML VIAL IV PRN (11:28)
[2023-07-21 02:50] LABS: Absolute Lymphocytes (CBC) 0.9 K/uL (0.7-4.9); Lymphocytes % 16.6 % (15.3-44.8); MCV 99.8 fL (80-100); MPV 9.3 fL (7.6-11.3); Platelets 103 thou/uL (152-406); RBC Red Blood Cell Count 2.11 M/uL (4.33-5.43)
[2023-07-21 02:58] LABS: Magnesium 1.9 mg/dL (1.6-2.4); Phosphorus 2.7 mg/dL (2.5-4.9); Potassium 3.5 mEq/L (3.5-5.1)
[2023-07-21] MEDS ORDERED: POTASSIUM PHOS 20 MM in NA CHLORIDE 0.9% 500 ML IV ONE (06:36)
[2023-07-21] MEDS: NA CHLORIDE 0.9% 1,000 ML IV SCH (06:57)
[2023-07-21] MEDS ORDERED: KCL 20 MEQ/100 mL IVPB 20 MEQ/100 ML BAG IV SCH (07:00)
[2023-07-21 08:02] LABS: Ferritin 207.2 ng/mL (26-388)
[2023-07-21] MEDS: ENOXAPARIN 40 MG/0.4 ML SQ SCH ×2 (08:54→09:00)
--- NOTE | 2023-07-21 10:07 | P.PN ---
Subjective Date of Service: 07/21/23 Chief Complaint: fall, cortical step off Lt.pubic ramus Subjective: New changes (Sleeping), Other (Sleeping more) Patient is arousable but very sleepy Patient's family at bedside reporting that patient was sleeping too much Vital signs stable No acute distress noticed Hemoglobin dropp, hemoglobin 7.1 and hematocrit 21.9 today Discussed with the nursing staff <Fallon Montoya - Last Filed: 07/21/23 10:01> Date of Service: 07/22/23 <Ba Roy - Last Filed: 07/22/23 07:03> Review of Systems 10-point ROS is otherwise unremarkable <Fallon Montoya - Last Filed: 07/21/23 10:01> Physical Examination - Vital Signs Temperature: 98.7 F Blood Pressure: 170/72 Pulse: 62 Respirations: 16 Pulse Ox (%): 93 - Physical Exam General: Other (Sleepy easily aroused on calls) HEENT: Atraumatic, Normocephalic Neck: Supple, 2+ carotid pulse no bruit Respiratory: Clear to auscultation bilaterally, Normal air movement Cardiovascular: No edema, Normal pulses Capillary refill: <2 Seconds Gastrointestinal: Normal bowel sounds, Hypoactive Musculoskeletal: No clubbing, No swelling, Other (Pain on left hip) Integumentary: No rashes, No breakdown Neurological: Normal gait, Normal speech <Fallon Montoya - Last Filed: 07/21/23 10:01> Assessment And Plan - Current Problems (Diagnosis) (1) Fall Current Visit: Yes Status: Acute Qualifiers: Encounter type: initial encounter Qualified Code(s): W19.XXXA - Unspecified fall, initial encounter (2) Fracture of left inferior pubic ramus Current Visit: Yes Status: Acute Qualifiers: Encounter type: initial encounter Fracture type: closed Qualified Code(s): S32.592A - Other specified fracture of left pubis, initial encounter for closed fracture (3) Anemia Current Visit: Yes Status: Acute Qualifiers: Iron deficiency anemia type: unspecified iron deficiency (4) Confusion Current Visit: Yes Status: Acute - Plan - Problems (Diagnosis) (1) Fall Current Visit: Yes Status: Acute (2) Fracture of left inferior pubic ramus Current Visit: Yes Status: Acute * Continued to have pain on the left hip and left elbow after fall on 07/18/2023 * Left hip radiology shows cortical step-off along the superior margin of the proximal aspect of left superior pubic ramus * Continue pain management as needed * Waiting for Ortho surgeon Dr. Heart recommendations * Continue IV hydration, analgesics * Will monitor the vital signs * Fall precautions * nonoperative management and closed treatment. PT weightbearing as tolerated with physical therapy (3) Anemia unknown if chronic * Patient's initial CBC shows a drop of hemoglobin of 7.1 over hematocrit 21.9. Not much different from yesterday * Will to monitor (4) hallucinations, confusion * Family reports patient has been having some hallucination and episodes of confusion * Patient responding appropriately clear to the commands moving all extremities but very sleepy * Will discontinue morphine at this time and continue to monitor * Swallow eval ordered as patient is noted to coughing while drinking * Aspiration precaution CODE STATUSfull code DVT prophylaxisSCDs and Lovenox Dietregular diet Discharge Plan: Home Plan to discharge in: 24 Hours - Code Status/Comfort Care Code Status Assessed: Yes (full code) Code Status: Full Code Physician Review: Patient Assessed, Agree with Above Assessment and Plan Critical Care: No Time Spent Managing PTS Care (In Minutes): 35 (minutes) <Fallon Montoya - Last Filed: 07/21/23 10:01> Physician Review Additional Text: 07/22/23 07:01 Pt seen and examined. i agree withthe not rosa the SPECIMEN PROCESSOR. His family members co mplain of hallucination. Will place family members picture in the room. Waiting for Speech therapy eval. Pt is NPO. <Ba Roy - Last Filed: 07/22/23 07:03>
[2023-07-21 13:42] LABS: Albumin 2.8 g/dL (3.4-5.0); Bilirubin Total 1.3 mg/dL (0.2-1.0); Potassium 3.9 mEq/L (3.5-5.1); Protein, Total 6.5 g/dL (6.4-8.2)
--- NOTE | 2023-07-21 21:43 | RAD REPORT ---
EXAM DESCRIPTION: RAD - Chest Single View - 07/21/2023 9:37 pm CLINICAL HISTORY: congestion r/o pneumonia Chest pain. COMPARISON: Chest Single View dated 08/04/2020; Chest Pa And Lat (2 Views) dated 04/26/2019; Chest Si ngle View dated 06/29/2017; CHEST SINGLE VIEW dated 02/03/2015 FINDINGS: Portable technique limits examination quality. The lungs are emphysematous with irregular biapical pleural scarring present. No focal infiltrate see n. The heart is normal in size. Atherosclerosis of the aorta with tortuosity.Diffuse osteopenia noted . IMPRESSION: No acute infiltrate identified.
[2023-07-22] MEDS: NA CHLORIDE 0.9% 1,000 ML IV SCH ×2 (01:33→19:00)
[2023-07-22] MEDS ORDERED: KCL 20 MEQ/100 mL IVPB 20 MEQ/100 ML BAG IV SCH (07:00)
[2023-07-22] MEDS ORDERED: POTASSIUM 25 MEQ EFFERV TAB PO ONE ×2 (08:02→17:48)
[2023-07-22] MEDS: ENOXAPARIN 40 MG/0.4 ML SQ SCH (09:00)
[2023-07-22] MEDS ORDERED: POTASSIUM CL SA 10 MEQ TAB PO ONE (09:00)
[2023-07-22 10:39] LABS: Absolute Lymphocytes (CBC) 0.7 K/uL (0.7-4.9); Hematocrit 23.2 % (39.6-49.0); Lymphocytes % 15.3 % (15.3-44.8); MCV 99.9 fL (80-100); MPV 8.7 fL (7.6-11.3); Platelets 129 thou/uL (152-406); RBC Red Blood Cell Count 2.32 M/uL (4.33-5.43)
[2023-07-22 10:54] LABS: Magnesium 1.9 mg/dL (1.6-2.4); Phosphorus 2.7 mg/dL (2.5-4.9); Potassium 3.8 mEq/L (3.5-5.1)
[2023-07-22 13:43] LABS: Albumin 2.8 g/dL (3.4-5.0); Bilirubin Total 1.3 mg/dL (0.2-1.0); Potassium 3.8 mEq/L (3.5-5.1); Protein, Total 6.1 g/dL (6.4-8.2)
--- NOTE | 2023-07-22 17:08 | P.PN ---
Date of Service: 07/22/23 Subjective Date of Service: 07/21/23 Chief Complaint: fall, cortical step off Lt.pubic ramus Subjective: New changes (Sleeping), Other (Sleeping more) Patient is arousable but very sleepy Patient's family at bedside reporting that patient was sleeping too much Vital signs stable No acute distress noticed Hemoglobin dropp, hemoglobin 7.1 and hematocrit 21.9 today Discussed with the nursing staff Review of Systems 10-point ROS is otherwise unremarkable Physical Examination - Vital Signs Temperature: 98.2F Blood Pressure: 162/70 Pulse: 62 Respirations: 16 Pulse Ox (%): 98 - Physical Exam General: Other awake, talking HEENT: Atraumatic, Normocephalic Neck: Supple, 2+ carotid pulse no bruit Respiratory: Clear to auscultation bilaterally, Normal air movement Cardiovascular: No edema, Normal pulses Capillary refill: <2 Seconds Gastrointestinal: Normal bowel sounds, Hypoactive Musculoskeletal: No clubbing, No swelling, Other (Pain on left hip) Integumentary: No rashes, No breakdown Neurological: Normal gait, Normal speech Assessment And Plan - Current Problems (Diagnosis) (1) Fall Current Visit: Yes Status: Acute Qualifiers: Encounter type: initial encounter Qualified Code(s): W19.XXXA - Unspecified fall, initial encounter (2) Fracture of left inferior pubic ramus Current Visit: Yes Status: Acute Qualifiers: Encounter type: initial encounter Fracture type: closed Qualified Code(s): S32.592A - Other specified fracture of left pubis, initial encounter for closed fracture (3) Anemia Current Visit: Yes Status: Acute Qualifiers: Iron deficiency anemia type: unspecified iron deficiency (4) Confusion Current Visit: Yes Status: Acute - Plan - Problems (Diagnosis) (1) Fall Current Visit: Yes Status: Acute (2) Fracture of left inferior pubic ramus Current Visit: Yes Status: Acute * Continued to have pain on the left hip and left elbow after fall on 07/18/2023 * Left hip radiology shows cortical step-off along the superior margin of the proximal aspect of left superior pubic ramus * Continue pain management as needed * Waiting for Ortho surgeon Dr. Heart recommendations * Continue IV hydration, analgesics * Will monitor the vital signs * Fall precautions * nonoperative management and closed treatment. PT weightbearing as tolerated with physical therapy (3) Anemia unknown if chronic * Patient's initial CBC shows a drop of hemoglobin 7.8/hct 28 today * Will to monitor (4) hallucinations, confusion * Improving, patient is more awake and talking. Family reports patient has been having some hallucination and episodes of confusion still/ * Patient responding appropriately clear to the commands moving all extremities * Swallow eval normal * Aspiration precautions CODE STATUSfull code DVT prophylaxisSCDs and Lovenox Dietregular diet <Fallon Montoya - Last Filed: 07/22/23 17:08> Pt seen and examined. I agree withe note by the FLOUR MIXER. Continue Phsyical therapy as tolerated and prn pain med. <Ba Roy - Last Filed: 07/23/23 07:20>
[2023-07-23 03:31] LABS: Absolute Lymphocytes (CBC) 0.6 K/uL (0.7-4.9); Hematocrit 24.3 % (39.6-49.0); MPV 8.8 fL (7.6-11.3); Platelets 141 thou/uL (152-406); RBC Red Blood Cell Count 2.43 M/uL (4.33-5.43)
[2023-07-23 03:51] LABS: Magnesium 1.8 mg/dL (1.6-2.4); Phosphorus 2.7 mg/dL (2.5-4.9); Potassium 3.7 mEq/L (3.5-5.1)
[2023-07-23] MEDS ORDERED: POTASSIUM CL SA 10 MEQ TAB PO ONE (06:33)
[2023-07-23] MEDS: ENOXAPARIN 40 MG/0.4 ML SQ SCH (09:00)
[2023-07-23 13:33] LABS: Specific Gravity 1.016 (1.005-1.030); Urine Bilirubin NEGATIVE (Negative); Urine Blood Negative (Negative); Urine Clarity Clear (Clear); Urine Color Light-Yellow (Yellow); Urine Glucose NEGATIVE (Negative); Urine Protein NEGATIVE (Negative); Urine Urobilinogen Normal (Normal); Urine pH 6.5 (5.0-7.0)
[2023-07-23] MEDS: NA CHLORIDE 0.9% 1,000 ML IV SCH ×2 (15:00→17:05)
--- NOTE | 2023-07-23 15:40 | P.PN ---
Date of Service: 07/23/23 Subjective Date of Service: 07/21/23 Chief Complaint: fall, cortical step off Lt.pubic ramus Subjective: New changes (Sleeping), Other (Sleeping more) Patient is arousable but very sleepy Patient's family at bedside reporting that patient was sleeping too much Vital signs stable No acute distress noticed Hemoglobin dropp, hemoglobin 7.1 and hematocrit 21.9 today Discussed with the nursing staff Review of Systems 10-point ROS is otherwise unremarkable Physical Examination - Vital Signs Temperature: 98.9F Blood Pressure: 148/72 Pulse: 114 Respirations: 16 Pulse Ox (%): 98 - Physical Exam General: Other awake, talking HEENT: Atraumatic, Normocephalic Neck: Supple, 2+ carotid pulse no bruit Respiratory: Clear to auscultation bilaterally, Normal air movement Cardiovascular: No edema, Normal pulses Capillary refill: <2 Seconds Gastrointestinal: Normal bowel sounds, Hypoactive Musculoskeletal: No clubbing, No swelling, Other (Pain on left hip) Integumentary: No rashes, No breakdown Neurological: Normal gait, Normal speech Assessment And Plan - Current Problems (Diagnosis) (1) Fall Current Visit: Yes Status: Acute Qualifiers: Encounter type: initial encounter Qualified Code(s): W19.XXXA - Unspecified fall, initial encounter (2) Fracture of left inferior pubic ramus Current Visit: Yes Status: Acute Qualifiers: Encounter type: initial encounter Fracture type: closed Qualified Code(s): S32.592A - Other specified fracture of left pubis, initial encounter for closed fracture (3) Anemia Current Visit: Yes Status: Acute Qualifiers: Iron deficiency anemia type: unspecified iron deficiency (4) Confusion Current Visit: Yes Status: Acute - Plan - Problems (Diagnosis) (1) Fall Current Visit: Yes Status: Acute (2) Fracture of left inferior pubic ramus Current Visit: Yes Status: Acute * Improving painpain on the left hip and left elbow after fall on 07/18/2023 * Left hip radiology shows cortical step-off along the superior margin of the proximal aspect of left superior pubic ramus * Continue pain management as needed * Waiting for Ortho surgeon Dr. Heart recommendations * Continue IV hydration, analgesics * Will monitor the vital signs * Fall precautions * nonoperative management and closed treatment. PT weightbearing as tolerated with physical therapy (3) Anemia unknown if chronic * Patient's initial CBC shows a drop of hemoglobin 8.3/hct 24.3 today * Will to monitor (4) hallucinations, confusion * Improving, patient is more awake and talking. Family reports patient has been having some hallucination and episodes of confusion still/ * Patient responding appropriately clear to the commands moving all extremities * Swallow eval normal * Aspiration precautions CODE STATUSfull code DVT prophylaxisSCDs and Lovenox Dietregular diet
[2023-07-23] MEDS ORDERED: POTASSIUM 25 MEQ EFFERV TAB PO ONE (16:30)
[2023-07-23] MEDS: MELATONIN 5 MG TABLET PO PRN (20:34)
--- NOTE | 2023-07-24 06:37 | P.PN ---
Date of Service: 07/24/23 Subjective: Physical Exam: Vitals: reviewed GEN: Alert, oriented, NAD HEENT: Normal conjunctiva, sclera anicteric CV: Regular rate & rhythm, no edema Pulm: Nonlabored respiraitons, clear bilaterally ABD: Soft, nontender, nondistended MSK: No joint tenderness Integumentary: No rashes Neuro: Normal speech, normal affect Problem List: Fracture of left inferior pubic ramus secondary to fall Anemia Hallucinations Plan: CT pelvis: : Mildly displaced fractures of the left superior and inferior pubic rami as above. Nonlocalized hematoma tracking along the left pelvic sidewall and extraperitoneal space anterior to the bladder Continue PRN analgeics Ortho - Dr. Heart consulted Dr. Heart recommending nonoperative management and closed treatment. f/u in 2 weeks for reeval and repeat imaging. PT weightbearing as tolerated with physical therapy Continue IV fluids Fall precautions Monitor H&H. Transfuse for hgb < 7. family reports patient has been having some hallucination and episodes of confusion still. Speech consulted. swallow eval was normal Aspiration precautions.
[2023-07-24 06:54] LABS: Absolute Lymphocytes (CBC) 0.7 K/uL (0.7-4.9); Hematocrit 22.3 % (39.6-49.0); Lymphocytes % 19.2 % (15.3-44.8); MPV 8.4 fL (7.6-11.3); Platelets 157 thou/uL (152-406); RBC Red Blood Cell Count 2.23 M/uL (4.33-5.43)
[2023-07-24 07:05] LABS: Phosphorus 3.2 mg/dL (2.5-4.9); Potassium 3.7 mEq/L (3.5-5.1)
[2023-07-24] MEDS: ENOXAPARIN 40 MG/0.4 ML SQ SCH (08:08)
[2023-07-24] MEDS: NA CHLORIDE 0.9% 1,000 ML IV SCH ×2 (11:24→21:47)
[2023-07-25 03:29] LABS: Hematocrit 23.4 % (39.6-49.0); Lymphocytes % 24.8 % (15.3-44.8); MPV 8.2 fL (7.6-11.3); Platelets 173 thou/uL (152-406); RBC Red Blood Cell Count 2.34 M/uL (4.33-5.43)
[2023-07-25 03:36] LABS: Phosphorus 2.9 mg/dL (2.5-4.9); Potassium 3.9 mEq/L (3.5-5.1)
[2023-07-25] MEDS: NA CHLORIDE 0.9% 1,000 ML IV SCH ×2 (05:55→16:07)
[2023-07-25] MEDS ORDERED: POTASSIUM 25 MEQ EFFERV TAB PO ONE (09:00)
[2023-07-25] MEDS: ENOXAPARIN 40 MG/0.4 ML SQ SCH (10:00)
[2023-07-25] MEDS: ENSURE ENLIVE 237 ML CAN PO SCH (21:00)
[2023-07-25] MEDS: MELATONIN 5 MG TABLET PO PRN (21:05)
[2023-07-26 02:43] LABS: Potassium 4.1 mEq/L (3.5-5.1)
[2023-07-26] MEDS: NA CHLORIDE 0.9% 1,000 ML IV SCH (02:43)
[2023-07-26 08:00] VITALS: O2SAT 99
[2023-07-26] MEDS: ENOXAPARIN 40 MG/0.4 ML SQ SCH (08:12)
[2023-07-26] MEDS: ENSURE ENLIVE 237 ML CAN PO SCH (08:12)
--- NOTE | 2023-07-26 08:53 | RAD REPORT ---
EXAM DESCRIPTION: CT - Head Brain Wo Cont - 07/26/2023 8:45 am CLINICAL HISTORY: Alteration of awareness/confusion COMPARISON: 2019 TECHNIQUE: Computed axial tomography of the head was obtained. IV contrast was not requested. All CT scans are performed using dose optimization technique as appropriate and may include automated exposure control or mA/KV adjustment according to patient size. FINDINGS: An intracranial bleed is not seen The ventricles are normal in caliber No extra-axial fluid collection is noted. Prominent right frontal lobe atrophy without significant change. Fluid within the sinuses/ mastoids is not seen. IMPRESSION: No acute intracranial abnormality is seen If patient's symptoms persist MRI of the brain would be recommended
[2023-07-26] MEDS ORDERED: METHYLPREDNISOLONE 40 MG INJ IV ONE (10:45)
[2023-07-26] MEDS ORDERED: SOD FERRIC GLUC COMPLX/SUCROSE 125 MG in NA CHLORIDE 0.9% 100 ML IV ONE (11:00)
[2023-07-26 12:17] VITALS: BP 142/64; TEMP 98.3
[2023-07-26 14:10] LABS: SARS-CoV-2 Antigen Rapid Res Negative (Negative)
== END 2023-07-26 18:03 | DRG 536 ==
LOC: ER 08:17 → ERHOLD 13:54 → 2ND 16:18
PROVIDERS: ADMIT Hospitalist; ATTEND Hospitalist
DX: S32.512A Fracture of superior rim of left pubis, initial encounter for closed fracture (principal); R44.3 Hallucinations, unspecified; N40.0 Benign prostatic hyperplasia without lower urinary tract symptoms; D50.9 Iron deficiency anemia, unspecified; R41.0 Disorientation, unspecified; Z90.49 Acquired absence of other specified parts of digestive tract; Z11.52 Encounter for screening for COVID-19; Z79.82 Long term (current) use of aspirin; Z79.899 Other long term (current) drug therapy; W18.30XA Fall on same level, unspecified, initial encounter; Y93.89 Activity, other specified; Y99.9 Unspecified external cause status; Y92.014 Private driveway to single-family (private) house as the place of occurrence of the external cause
CPT/HCPCS: 36415; 70450; 71045; 72192; 80048; 80053; 81001; 81003; 82306; 82728; 82947; 83540; 83735; 84100; 84466; 85025; 87811; 92610; 96374; 96375; 97110; 97116; 97161; 97530; 99285; J0360; J1650; J2270; J2405; J2916; J2920; J3480; J7030